=== PATIENT | female | born 2000 | race Caucasian/White ===

== ENCOUNTER 2018-12-28 18:55 | Emergency (ER) | payer OTHER ==
[2018-12-28 19:09] VITALS: RESP 18
[2018-12-28] MEDS ORDERED: KETOROLAC 30 MG/ML 1 ML VIAL IM STA (19:20)
[2018-12-28] MEDS ORDERED: DIAZEPAM 5 MG/ML 2 ML INJ IM ONE (19:20)
--- NOTE | 2018-12-28 19:25 | ED ---
Upper Extremity HPI - General Chief Complaint: Extremity Injury, Upper Stated Complaint: Should dislocation Time Seen by Provider: 12/28/18 19:12 Source: patient Mode of arrival: ambulatory Limitations: no limitations - History of Present Illness Initial Comments: 18-year-old female patient presents to the emergency department today for evaluation of right shoulder pain. Patient states that approximately 2-1/2 hours ago she was lying her son down on the floor, states that he was holding onto her arm and would not like ago which caused her right shoulder to "pop". Patient states that she had sudden onset of pain to the shoulder. States that she has a numb feeling on the right arm. Patient states that she has had a knee subluxation before but denies ever having a shoulder dislocation or subluxation. Patient did take 800 mg of ibuprofen at time of injury. She denies any other injuries or concerns. Patient denies any headache, neck pain, back pain, chest pain, shortness of breath, dizziness, weakness, abdominal pain, nausea, vomiting, or difficulties with bowel movements or urination. - Related Data Home Medications Medication Instructions Recorded Confirmed Butalb/APAP/Caff 50-325-40Mg 1 tab PO DAILY PRN 12/28/18 12/28/18 [Fioricet 50-325-40] Levalbuterol Tartrate [Xopenex Hfa 1 - 2 puff INHALATION RT-QID PRN 12/28/18 12/28/18 Inhaler] Norelgestromin/Ethin.estradiol 1 patch TRANSDERM DIRECTED 12/28/18 12/28/18 [Xulane Patch] Topiramate [Topamax] 25 mg PO HS 12/28/18 12/28/18 Allergies Allergy/AdvReac Type Severity Reaction Status Date / Time azithromycin [From Zithromax] Allergy Swelling Verified 12/28/18 19:38 Cephalosporins Allergy Rash/Hives Verified 12/28/18 19:38 methylphenidate AdvReac Rapid Verified 12/28/18 19:38 [From Concerta] Heart Rate Review of Systems ROS Statement: Those systems with pertinent positive or pertinent negative responses have been documented in the HPI. ROS Other: All systems not noted in ROS Statement are negative. Past Medical History Past Medical History: Asthma History of Any Multi-Drug Resistant Organisms: None Reported Past Surgical History: No Surgical Hx Reported Past Psychological History: No Psychological Hx Reported Smoking Status: Current every day smoker Past Alcohol Use History: None Reported Past Drug Use History: None Reported General Exam Limitations: no limitations General appearance: alert, in no apparent distress, other (There is a well- developed, well-nourished adult female patient in no acute distress. Vital signs upon presentation are temperature 98.1F, pulse 65, respirations 18, blood pressure 112/69, pulse ox 98% on room air.) Eye exam: Present: normal appearance, PERRL, EOMI. Absent: scleral icterus, conjunctival injection, periorbital swelling ENT exam: Present: normal exam, normal oropharynx, mucous membranes moist Respiratory exam: Present: normal lung sounds bilaterally. Absent: respiratory distress, wheezes, rales, rhonchi, stridor Cardiovascular Exam: Present: regular rate, normal rhythm, normal heart sounds. Absent: systolic murmur, diastolic murmur, rubs, gallop, clicks Extremities exam: Present: normal inspection, full ROM, tenderness (Right acromioclavicular joint), normal capillary refill, other (There is obvious deformity noted of the right shoulder. Skin to the right upper arm is pink, warm, dry. Cap refills less than 3 seconds. Radial pulses 2+ and equal bilater ally.). Absent: pedal edema, joint swelling, calf tenderness Neurological exam: Present: alert, oriented X3, CN II-XII intact Psychiatric exam: Present: normal affect, normal mood Skin exam: Present: warm, dry, intact, normal color. Absent: rash Course Vital Signs 12/28/18 12/28/18 19:06 21:02 Temperature 98.1 F 98.0 F Pulse Rate 65 76 Respiratory 18 18 Rate Blood Pressure 112/69 103/71 O2 Sat by Pulse 98 96 Oximetry Medical Decision Making - Medical Decision Making 18-year-old female patient presents to the emergency department today for evaluation of right shoulder injury. Patient states that she was lowering her child to the floor, states he was holding onto her arm and wouldn't let go causing a popping sensation and pain. Patient states she is unable to move the right shoulder without significant discomfort. Physical examination revealed decreased range of motion due to pain. Neurovascular status intact. X-rays were obtained and showed no acute abnormalities including dislocation or subluxation. I did discuss findings and results with the patient. We did discuss rotator cuff injury or tendon or ligamentous injury as a cause for her symptoms. She is instructed to take Tylenol Motrin for pain control. She is given a sling but given explicit instructions on frequent range of motion exercises to prevent frozen sober. She is instructed to follow-up with orthopedics for further evaluation as soon as possible patient is instructed fall. The primary care physician for recheck in 1-2 days. Return parameters discussed in detail. She verbalizes understanding and agrees with this plan. - Radiology Data Radiology results: report reviewed, image reviewed 3 views of the right shoulder obtained. Report reviewed in its entirety. I mpression by Dr. Soni shows negative right shoulder exam. Disposition Clinical Impression: Right shoulder injury Disposition: HOME SELF-CARE Condition: Good Instructions (If sedation given, give patient instructions): Rotator Cuff Injury (ED) Additional Instructions: Apply ice 20 minutes at time at least 4 times daily. Use sling for comfort and support. Remove arm from the sling and perform gentle range of motion 4-5 times daily. Follow-up with the exercise equipment specialist for further evaluation as soon as possible. Return to the emergency department immediately for any new, worsening, or concerning symptoms. Is patient prescribed a controlled substance at d/c from ED?: No Referrals: Liset Miller DO [Primary Care Provider] - 1-2 days Michoacano Vogel MD [STAFF PHYSICIAN] - 1-2 days Time of Disposition: 20:30
--- NOTE | 2018-12-28 20:03 | XR ---
EXAMINATION TYPE: XR shoulder complete RT DATE OF EXAM: 12/28/2018 COMPARISON: NONE HISTORY: Shoulder pain TECHNIQUE: 3 views FINDINGS: I see no fracture nor dislocation. Joint spaces are normal. There are no pathologic calcifi cations. IMPRESSION: Negative right shoulder exam.
[2018-12-28 21:03] VITALS: BP 103/71; PULSE 76; TEMP 98
== END 2018-12-28 21:02 | disposition home or self-care (01) ==
LOC: EC 18:55
DX: S49.91XA Unspecified injury of right shoulder and upper arm, initial encounter (principal); J45.909 Unspecified asthma, uncomplicated; F17.200 Nicotine dependence, unspecified, uncomplicated; Z79.899 Other long term (current) drug therapy; Z88.1 Allergy status to other antibiotic agents; Z88.8 Allergy status to other drugs, medicaments and biological substances; X50.9XXA Other and unspecified overexertion or strenuous movements or postures, initial encounter
CPT/HCPCS: 73030; 99283; 96372 ×2; J3360; J1885

== ENCOUNTER 2019-04-10 10:05 | Emergency (ER) | payer OTHER ==
[2019-04-10 10:18] VITALS: BP 118/51; RESP 18; TEMP 98.3
[2019-04-10] MEDS ORDERED: IPRATROPIUM-ALBUTEROL 3 ML NEB INHALATION STA (10:25)
--- NOTE | 2019-04-10 10:28 | ED ---
SOB HPI - General Chief Complaint: Shortness of Breath Stated Complaint: congestion Time Seen by Provider: 04/10/19 10:19 Source: patient, RN notes reviewed Mode of arrival: ambulatory Limitations: no limitations - History of Present Illness Initial Comments: 19-year-old female presents emergency Department chief complaint of cough, congestion shortness of breath. Patient states that she's been sick for last 3- 4 days but states her asthma has been flaring up. Patient denies any known fevers or chills. Patient states that she's had some loss of her voice but no difficulty swallowing. Patient denies any chance . Patient did not use her inhaler today. Patient also states that she feels lightheaded, states that she felt like she has not passed out earlier. Patient does not have any current symptoms of that. - Related Data Home Medications Medication Instructions Recorded Confirmed Butalb/APAP/Caff 50-325-40Mg 1 tab PO DAILY PRN 12/28/18 12/28/18 [Fioricet 50-325-40] Levalbuterol Tartrate [Xopenex Hfa 1 - 2 puff INHALATION RT-QID PRN 12/28/18 12/28/18 Inhaler] Norelgestromin/Ethin.estradiol 1 patch TRANSDERM DIRECTED 12/28/18 12/28/18 [Xulane Patch] Topiramate [Topamax] 25 mg PO HS 12/28/18 12/28/18 Previous Rx's Medication Instructions Recorded Amoxicillin/Potassium Clav 1 tab PO Q12HR #20 tab 04/10/19 [Augmentin 875-125 Tablet] predniSONE 50 mg PO DAILY #5 tab 04/10/19 Allergies Allergy/AdvReac Type Severity Reaction Status Date / Time azithromycin [From Zithromax] Allergy Swelling Verified 04/10/19 10:41 Cephalosporins Allergy Rash/Hives Verified 04/10/19 10:41 methylphenidate AdvReac Rapid Verified 04/10/19 10:41 [From Concerta] Heart Rate Review of Systems ROS Statement: Those systems with pertinent positive or pertinent negative responses have been documented in the HPI. ROS Other: All systems not noted in ROS Statement are negative. Past Medical History Past Medical History: Asthma History of Any Multi-Drug Resistant Organisms: None Reported Past Surgical History: No Surgical Hx Reported Additional Past Surgical History / Comment(s): oral Past Psychological History: No Psychological Hx Reported, Anxiety, Depression Smoking Status: Former smoker Past Alcohol Use History: Occasional Past Drug Use History: None Reported General Exam Limitations: no limitations General appearance: alert, in no apparent distress Head exam: Present: atraumatic, normocephalic, normal inspection Eye exam: Present: normal appearance, PERRL, EOMI. Absent: scleral icterus, conjunctival injection, periorbital swelling ENT exam: Present: normal exam, normal oropharynx, mucous membranes moist, TM's normal bilaterally Neck exam: Present: normal inspection, full ROM. Absent: tenderness, meningismus, lymphadenopathy Respiratory exam: Present: wheezes. Absent: normal lung sounds bilaterally, respiratory distress, rales, rhonchi, stridor Cardiovascular Exam: Present: regular rate, normal rhythm, normal heart sounds. Absent: systolic murmur, diastolic murmur, rubs, gallop, clicks Neurological exam: Present: alert, oriented X3 Skin exam: Present: warm, dry, intact, normal color. Absent: rash Course Vital Signs 04/10/19 10:14 Temperature 98.3 F Pulse Rate 79 Respiratory 18 Rate Blood Pressure 118/51 O2 Sat by Pulse 97 Oximetry Medical Decision Making - Medical Decision Making Chest x-rays unremarkable. Patient is given treatment in emergency room and which helped her symptoms. Patient EKG unremarkable. Patient to for URI, asthma exacerbation. Patient does have a rescue inhaler. Patient will follow- up with PCP and return for any worsening symptoms. - EKG Data -: EKG Interpreted by Me EKG Comments: EKG performed at 10:30 normal sinus rhythm rate of 65 ME 114 QRS 88 QT/QTC 42/418 Disposition Clinical Impression: Mild asthma exacerbation, URI (upper respiratory infection) Disposition: HOME SELF-CARE Condition: Stable Instructions (If sedation given, give patient instructions): Asthma (ED) Additional Instructions: Please return to the Emergency Department if symptoms worsen or any other concerns. Prescriptions: Amoxicillin/Potassium Clav [Augmentin 875-125 Tablet] 1 tab PO Q12HR #20 tab predniSONE 50 mg PO DAILY #5 tab Is patient prescribed a controlled substance at d/c from ED?: No Referrals: Liset Miller DO [Primary Care Provider] - 1-2 days Time of Disposition: 11:01
--- NOTE | 2019-04-10 10:39 | XR ---
EXAMINATION TYPE: XR chest 2V DATE OF EXAM: 04/10/2019 COMPARISON: None INDICATION: Cough, short of breath TECHNIQUE: Frontal and lateral views of the chest are obtained. FINDINGS: The heart size is normal. The pulmonary vasculature is normal. The lungs are clear. IMPRESSION: 1. No acute pulmonary process.
[2019-04-10 10:58] VITALS: PULSE 84
== END 2019-04-10 11:23 | disposition home or self-care (01) ==
LOC: EC 10:05
DX: J45.901 Unspecified asthma with (acute) exacerbation (principal); J06.9 Acute upper respiratory infection, unspecified; R42 Dizziness and giddiness; Z87.891 Personal history of nicotine dependence; Z88.1 Allergy status to other antibiotic agents; Z88.8 Allergy status to other drugs, medicaments and biological substances; Z79.3 Long term (current) use of hormonal contraceptives; Z79.899 Other long term (current) drug therapy
CPT/HCPCS: 71046; 93005; 94640; 99284

== ENCOUNTER 2019-10-18 08:58 | Emergency (ER) | payer OTHER ==
[2019-10-18 09:09] VITALS: TEMP 97.7
[2019-10-18] MEDS ORDERED: SODIUM CHLORIDE 0.9% 1,000 ML IV ONE (09:35)
[2019-10-18] MEDS ORDERED: SODIUM CHLORIDE 0.9% 500 ML 500 ML IV ONE (09:35)
[2019-10-18 09:36] LABS: Basophils % (A) 0 %; Eosinophils % (A) 0 %; HCT 39.5 % (34.0-46.0); HGB 12.3 gm/dL (11.4-16.0); Lymphocytes # (A) 0.9 k/uL (1.0-4.8); Lymphocytes % (A) 14 %; MCH 28.7 pg (25.0-35.0); MCV 92.7 fL (80.0-100.0); Mean Platelet Volume 9.9; Monocytes # (A) 0.2 k/uL (0-1.0); Monocytes % (A) 3 %; Neutrophils # (A) 5.4 k/uL (1.3-7.7); Neutrophils % (A) 81 %; Platelet Count 142 k/uL (150-450); RBC 4.27 m/uL (3.80-5.40); RDW 13.1 % (11.5-15.5); WBC 6.6 k/uL (3.8-10.6)
[2019-10-18] MEDS ORDERED: SODIUM CHLORIDE 0.9% 1,000 ML IV SCH (09:45)
[2019-10-18 09:51] LABS: ALT 10 U/L (4-34); AST 19 U/L (14-36); African American GFR (CKD) >90 (>60 ml/min/1.73 sqM); Alkaline Phosphatase 49 U/L (38-126); Anion Gap 9 mmol/L; Blood Urea Nitrogen 11 mg/dL (7-17); Calcium 9.2 mg/dL (8.4-10.2); Carbon Dioxide 22 mmol/L (22-30); Chloride 106 mmol/L (98-107); Glucose 141 mg/dL (74-99); Magnesium 1.5 mg/dL (1.6-2.3); Non-African American GFR(CKD) >90 (>60 ml/min/1.73 sqM); Potassium 3.6 mmol/L (3.5-5.1); Sodium 137 mmol/L (137-145); Total Bilirubin 0.5 mg/dL (0.2-1.3)
--- NOTE | 2019-10-18 10:16 | ED ---
Abdominal Pain HPI - General Chief Complaint: Abdominal Pain Stated Complaint: Vomiting Source: patient, EMS Mode of arrival: EMS Limitations: no limitations - History of Present Illness Initial Comments: 19-year-old female presenting today for chief complaint of nausea vomiting 3 days. Patient states she's had nausea and vomiting 2 days she states that she no longer tolerate oral intake. Patient states she has some very mild periumbilical pain without radiation. Denies fevers. Patient denies any melena hematochezia hyperemesis denies fevers. Patient denies any cough or rashes. Patient denies any specific dysuria urgency frequency flank pain back pain general malaise or chills. Remaining review of systems negative upon arrival patient appears well signs of acute distress - Related Data Home Medications Medication Instructions Recorded Confirmed Butalb/APAP/Caff 50-325-40Mg 1 tab PO DAILY PRN 12/28/18 10/18/19 [Fioricet 50-325-40] Levalbuterol Tartrate [Xopenex Hfa 1 - 2 puff INHALATION RT-QID PRN 12/28/18 10/18/19 Inhaler] Amitriptyline HCl [Elavil] 10 mg PO HS 10/18/19 10/18/19 Citalopram Hydrobromide 20 mg PO HS 10/18/19 10/18/19 [Citalopram HBr] Norgestimate-Ethinyl Estradiol 1 each PO DAILY 10/18/19 10/18/19 [Ortho Tri-Cyclen 28 Tablet] Previous Rx's Medication Instructions Recorded Ondansetron Odt [Zofran Odt] 4 mg PO Q8HR PRN 7 Days #21 tab 10/18/19 Sulfamethox-Tmp 800-160Mg [Bactrim 1 tab PO Q12HR 5 Days #10 tab 10/18/19 DS 800-160 mg] Allergies Allergy/AdvReac Type Severity Reaction Status Date / Time azithromycin [From Zithromax] Allergy Swelling Verified 10/18/19 09:54 Cephalosporins Allergy Rash/Hives Verified 10/18/19 09:54 methylphenidate AdvReac Rapid Verified 10/18/19 09:54 [From Concerta] Heart Rate Review of Systems ROS Statement: Those systems with pertinent positive or pertinent negative responses have been documented in the HPI. ROS Other: All systems not noted in ROS Statement are negative. Past Medical History Past Medical History: Asthma History of Any Multi-Drug Resistant Organisms: None Reported Past Surgical History: No Surgical Hx Reported Additional Past Surgical History / Comment(s): oral Past Psychological History: Anxiety, Depression Smoking Status: Former smoker Past Alcohol Use History: Occasional Past Drug Use History: Marijuana General Exam - General Exam Comments Initial Comments: General: The patient is awake and alert, in no distress, and does not appear acutely ill. Eye: Pupils are equal, round and reactive to light, extra-ocular movements are intact. No nystagmus. There is normal conjunctiva bilaterally. No signs of icterus. Cardiovascular: There is a regular rate and rhythm. No murmur, rub or gallop is appreciated. Respiratory: Lungs are clear to auscultation, respirations are non-labored, breath sounds are equal. No wheezes, stridor, rales, or rhonchi. Gastrointestinal: Soft, non-distended, mild periumbilical pain to palpation of the abdomen without masses or organomegaly noted. There is no rebound or guarding present. Musculoskeletal: Normal ROM, no tenderness. Strength 5/5. Sensation intact. Radial pulses equal bilaterally 2+. Neurological: A&O x 3. CN II-XII intact grossly, There are no obvious motor or sensory deficits. Coordination appears grossly intact. Speech is normal. Skin: Skin is warm and dry and no rashes or lesions are noted. Psychiatric: Cooperative, appropriate mood & affect, normal judgment. Limitations: no limitations Course Vital Signs 10/18/19 10/18/19 10/18/19 09:03 09:08 10:08 Temperature 97.7 F Pulse Rate 61 59 L Respiratory 18 20 20 Rate Blood Pressure 120/83 117/80 O2 Sat by Pulse 100 100 Oximetry 10/18/19 11:15 Temperature Pulse Rate 72 Respiratory 20 Rate Blood Pressure 104/74 O2 Sat by Pulse 100 Oximetry Medical Decision Making - Medical Decision Making 19 yo presenting for vomiting, some diarrhea. Mild pain periumbilical. CT (-) f or appendicitis, noted enteritis. Cystitis. UA concerning for infection vs not clean catch. UA culture pending. WIll treat. Patinet vomiting controlled, hydrated in ER. Repeat abdominal exam no pain. No vomiting in ER. states she is feeling much better after fluids. recommended pcp f/u with return parameters for worsening symptoms/any pain. Patient case discussed with Dr. William. - Lab Data Result diagrams: 10/18/19 09:07 10/18/19 09:07 Lab Results 10/18/19 10/18/19 10/18/19 Range/Units 09:07 09:07 09:51 WBC 6.6 (3.8-10.6) k/uL RBC 4.27 (3.80-5.40) m/uL Hgb 12.3 (11.4-16.0) gm/dL Hct 39.5 (34.0-46.0) % MCV 92.7 (80.0-100.0) fL MCH 28.7 (25.0-35.0) pg MCHC 31.0 (31.0-37.0) g/dL RDW 13.1 (11.5-15.5) % Plt Count 142 L (150-450) k/uL Neutrophils % 81 % Lymphocytes % 14 % Monocytes % 3 % Eosinophils % 0 % Basophils % 0 % Neutrophils # 5.4 (1.3-7.7) k/uL Lymphocytes # 0.9 L (1.0-4.8) k/uL Monocytes # 0.2 (0-1.0) k/uL Eosinophils # 0.0 (0-0.7) k/uL Basophils # 0.0 (0-0.2) k/uL Sodium 137 (137-145) mmol/L Potassium 3.6 (3.5-5.1) mmol/L Chloride 106 (98-107) mmol/L Carbon Dioxide 22 (22-30) mmol/L Anion Gap 9 mmol/L BUN 11 (7-17) mg/dL Creatinine 0.68 (0.52-1.04) mg/dL Est GFR (CKD-EPI)AfAm >90 (>60 ml/min/1.73 sqM) Est GFR (CKD-EPI)NonAf >90 (>60 ml/min/1.73 sqM) Glucose 141 H (74-99) mg/dL Calcium 9.2 (8.4-10.2) mg/dL Magnesium 1.5 L (1.6-2.3) mg/dL Total Bilirubin 0.5 (0.2-1.3) mg/dL AST 19 (14-36) U/L ALT 10 (4-34) U/L Alkaline Phosphatase 49 (38-126) U/L Total Protein 7.0 (6.3-8.2) g/dL Albumin 4.0 (3.5-5.0) g/dL Lipase 52 (23-300) U/L Urine Color Yellow Urine Appearance Cloudy H (Clear) Urine pH 7.0 (5.0-8.0) Ur Specific [place] 1.020 (1.001-1.035) Urine Protein Trace H (Negative) Urine Glucose (UA) Negative (Negative) Urine Ketones 3+ H (Negative) Urine Blood Negative (Negative) Urine Nitrite Negative (Negative) Urine Bilirubin Negative (Negative) Urine Urobilinogen <2.0 (<2.0) mg/dL Ur Leukocyte Esterase Moderate H (Negative) Urine RBC 1 (0-5) /hpf Urine WBC 31 H (0-5) /hpf Ur Squamous Epith Cells 10 H (0-4) /hpf Amorphous Sediment Rare H (None) /hpf Urine Bacteria Rare H (None) /hpf Urine Mucus Many H (None) /hpf Urine HCG, Qual (Not Detectd) 10/18/19 Range/Units 09:51 WBC (3.8-10.6) k/uL RBC (3.80-5.40) m/uL Hgb (11.4-16.0) gm/dL Hct (34.0-46.0) % MCV (80.0-100.0) fL MCH (25.0-35.0) pg MCHC (31.0-37.0) g/dL RDW (11.5-15.5) % Plt Count (150-450) k/uL Neutrophils % % Lymphocytes % % Monocytes % % Eosinophils % % Basophils % % Neutrophils # (1.3-7.7) k/uL Lymphocytes # (1.0-4.8) k/uL Monocytes # (0-1.0) k/uL Eosinophils # (0-0.7) k/uL Basophils # (0-0.2) k/uL Sodium (137-145) mmol/L Potassium (3.5-5.1) mmol/L Chloride (98-107) mmol/L Carbon Dioxide (22-30) mmol/L Anion Gap mmol/L BUN (7-17) mg/dL Creatinine (0.52-1.04) mg/dL Est GFR (CKD-EPI)AfAm (>60 ml/min/1.73 sqM) Est GFR (CKD-EPI)NonAf (>60 ml/min/1.73 sqM) Glucose (74-99) mg/dL Calcium (8.4-10.2) mg/dL Magnesium (1.6-2.3) mg/dL Total Bilirubin (0.2-1.3) mg/dL AST (14-36) U/L ALT (4-34) U/L Alkaline Phosphatase (38-126) U/L Total Protein (6.3-8.2) g/dL Albumin (3.5-5.0) g/dL Lipase (23-300) U/L Urine Color Urine Appearance (Clear) Urine pH (5.0-8.0) Ur Specific [place] (1.001-1.035) Urine Protein (Negative) Urine Glucose (UA) (Negative) Urine Ketones (Negative) Urine Blood (Negative) Urine Nitrite (Negative) Urine Bilirubin (Negative) Urine Urobilinogen (<2.0) mg/dL Ur Leukocyte Esterase (Negative) Urine RBC (0-5) /hpf Urine WBC (0-5) /hpf Ur Squamous Epith Cells (0-4) /hpf Amorphous Sediment (None) /hpf Urine Bacteria (None) /hpf Urine Mucus (None) /hpf Urine HCG, Qual Not Detected (Not Detectd) Disposition Clinical Impression: Enteritis, Vomiting, UTI (urinary tract infection) Disposition: ADMITTED IP TO THIS HOSP Condition: Stable Instructions (If sedation given, give patient instructions): Urinary Tract Infection in Women (ED), Enteritis (ED) Additional Instructions: Please use medication as discussed. Please follow-up with family doctor in the next 2 days. Please return to emergency room if the symptoms increase or worsen or for any other concerns. Prescriptions: Sulfamethox-Tmp 800-160Mg [Bactrim DS 800-160 mg] 1 tab PO Q12HR 5 Days #10 tab Ondansetron Odt [Zofran Odt] 4 mg PO Q8HR PRN 7 Days #21 tab PRN Reason: Nausea Is patient prescribed a controlled substance at d/c from ED?: No Referrals: Liset Miller DO [Primary Care Provider] - 1-2 days Time of Disposition: 10:58
[2019-10-18 10:24] VITALS: RESP 20
[2019-10-18 10:24] LABS: Amorphous Sediment,Urine Rare /hpf; Appearance,Urine Cloudy (Clear); Bacteria,Urine Rare /hpf; Bilirubin,Urine Negative (Negative); Blood,Urine Negative (Negative); Color,Urine Yellow; Glucose,Urine (UA) Negative (Negative); Ketones,Urine 3+ (Negative); Leukocyte Esterase,Urine Moderate (Negative); Mucus,Urine Many /hpf; Nitrite,Urine Negative (Negative); Protein,Urine Trace (Negative); RBC,Urine 1 /hpf (0-5); Squamous Epithelial Cell,Urine 10 /hpf (0-4); Urobilinogen,Urine <2.0 mg/dL (<2.0); WBC,Urine 31 /hpf (0-5)
--- NOTE | 2019-10-18 10:51 | CT ---
EXAMINATION TYPE: CT abdomen pelvis w con DATE OF EXAM: 10/18/2019 COMPARISON: NONE HISTORY: 19-year-old female Periumbilical pain, suspect appendicitis TECHNIQUE: Contiguous axial scanning of the abdomen and pelvis following administration of 100 ml Iso nicanor 300 IV contrast. Delayed images through the kidneys and coronal/sagittal reconstructions perform ed. CT DLP: 486.2 mGycm Automated exposure control for dose reduction was used. FINDINGS: LUNG BASES: No significant abnormality is appreciated. LIVER/GB: No significant abnormality is appreciated. PANCREAS: No significant abnormality is seen. SPLEEN: No significant abnormality is seen. ADRENALS: No significant abnormality is seen. KIDNEYS: No significant abnormality is seen. LYMPH NODES: No mesenteric or retroperitoneal lymphadenopathy. BOWEL: Cecum is low hanging into the right side of the pelvis. Short segment of normal appendix is v isualized containing foci of air, or fourth axial image 62 and coronal image 44. Some hyperemic appearing distal ileal loops seen low in the pelvis containing some prominent fluid. S cattered mild stool without pericolonic inflammatory change. PELVIS: There is moderate circumferential bladder wall thickening. Uterus anteverted. Left ovary visu alized. Right ovary not clearly delineated from adjacent bowel loops. Mild right sided cul-de-sac hugh e fluid. No pelvic lymphadenopathy. BONES: No osseous destructive process. IMPRESSION: 1. SHORT SEGMENT ABNORMAL APPENDIX IS VISUALIZED. NO FINDINGS OF ACUTE APPENDICITIS. 2. MODERATE CIRCUMFERENTIAL BLADDER WALL THICKENING; CORRELATE FOR CYSTITIS. 3. SOME HYPEREMIC APPEARING DISTAL ILEAL LOOPS HANGING LOW IN THE PELVIS COULD BE REACTIVE OR COULD R EPRESENT A REGIONAL ENTERITIS.
[2019-10-18] MEDS ORDERED: SULFAMETH-TMP DS STARTER PACK 2 TAB BTL PO STA (10:54)
[2019-10-18 11:16] VITALS: BP 104/74; PULSE 72
== END 2019-10-18 11:17 | disposition other institution (70) ==
LOC: EC 08:58
DX: N39.0 Urinary tract infection, site not specified (principal); K52.9 Noninfective gastroenteritis and colitis, unspecified; F41.9 Anxiety disorder, unspecified; F32.9 Major depressive disorder, single episode, unspecified; J45.909 Unspecified asthma, uncomplicated; Z79.51 Long term (current) use of inhaled steroids; Z79.3 Long term (current) use of hormonal contraceptives; Z79.899 Other long term (current) drug therapy; Z87.891 Personal history of nicotine dependence; Z88.1 Allergy status to other antibiotic agents; Z88.8 Allergy status to other drugs, medicaments and biological substances
CPT/HCPCS: 36415; 80053; 83690; 83735; 85025; 81001; 81025; 74177; 99285; 96360; Q9967

== ENCOUNTER 2019-10-21 15:42 | Emergency (ER) | payer OTHER ==
[2019-10-21] MEDS ORDERED: diphenhydrAMINE 50 MG/ML 1 ML VIAL IVP STA (16:09)
[2019-10-21] MEDS ORDERED: METOCLOPRAMIDE 5 MG/ML 2 ML VIAL IVP STA (16:09)
[2019-10-21] MEDS ORDERED: SODIUM CHLORIDE 0.9% 2,000 ML IV STA (16:09)
--- NOTE | 2019-10-21 16:09 | ED ---
Abdominal Pain HPI - General Chief Complaint: Abdominal Pain Stated Complaint: recheck- nausea, vomiting, abd pain Time Seen by Provider: 10/21/19 15:48 Source: patient Mode of arrival: ambulatory Limitations: no limitations - History of Present Illness Initial Comments: Patient is a 19-year-old female presenting to emergency Department with a chief complaint of nausea vomiting abdominal pain. States she went to the emergency department 2 days ago for similar symptoms. Patient reports after she was discharged, her symptoms began to improve. Stay she was discharged with Bactrim. Reports yesterday she felt better but woke up today with nausea and 1 episode of nonbilious, nonbloody vomiting. States she is not [place] since this morning. States she is able to keep only small amounts of fluids down. States she has not developed right lower back pain. Denies any night sweats fevers or chills. Denies dysuria and urgency but does report increased frequency. States the urine is darker than usual. Denies hematuria, hematochezia melena. - Related Data Home Medications Medication Instructions Recorded Confirmed Butalb/APAP/Caff 50-325-40Mg 1 tab PO DAILY PRN 12/28/18 10/18/19 [Fioricet 50-325-40] Levalbuterol Tartrate [Xopenex Hfa 1 - 2 puff INHALATION RT-QID PRN 12/28/18 10/18/19 Inhaler] Amitriptyline HCl [Elavil] 10 mg PO HS 10/18/19 10/18/19 Citalopram Hydrobromide 20 mg PO HS 10/18/19 10/18/19 [Citalopram HBr] Norgestimate-Ethinyl Estradiol 1 each PO DAILY 10/18/19 10/18/19 [Ortho Tri-Cyclen 28 Tablet] Previous Rx's Medication Instructions Recorded Ondansetron Odt [Zofran Odt] 4 mg PO Q8HR PRN 7 Days #21 tab 10/18/19 Sulfamethox-Tmp 800-160Mg [Bactrim 1 tab PO Q12HR 5 Days #10 tab 10/18/19 DS 800-160 mg] Metoclopramide [Reglan] 10 mg PO TID PRN #15 tab 10/21/19 Allergies Allergy/AdvReac Type Severity Reaction Status Date / Time azithromycin [From Zithromax] Allergy Swelling Verified 10/21/19 15:47 Cephalosporins Allergy Rash/Hives Verified 10/21/19 15:47 methylphenidate AdvReac Rapid Verified 10/21/19 15:47 [From Concerta] Heart Rate Review of Systems ROS Statement: Those systems with pertinent positive or pertinent negative responses have been documented in the HPI. ROS Other: All systems not noted in ROS Statement are negative. Past Medical History Past Medical History: Asthma History of Any Multi-Drug Resistant Organisms: None Reported Past Surgical History: No Surgical Hx Reported Additional Past Surgical History / Comment(s): oral Past Psychological History: Anxiety, Depression Smoking Status: Former smoker Past Alcohol Use History: Occasional Past Drug Use History: Marijuana General Exam Limitations: no limitations General appearance: alert, in no apparent distress Head exam: Present: atraumatic, normocephalic, normal inspection Eye exam: Present: normal appearance, PERRL, EOMI Pupils: Present: normal accommodation ENT exam: Present: normal exam, normal oropharynx, mucous membranes moist Neck exam: Present: normal inspection, full ROM Respiratory exam: Present: normal lung sounds bilaterally. Absent: respiratory distress, wheezes Cardiovascular Exam: Present: regular rate, normal rhythm, normal heart sounds GI/Abdominal exam: Present: soft, tenderness (Diffuse abdominal tenderness). Absent: distended Extremities exam: Present: normal inspection, full ROM Back exam: Present: normal inspection, full ROM, CVA tenderness (R) Neurological exam: Present: alert, oriented X3 Psychiatric exam: Present: normal affect, normal mood Skin exam: Present: warm, dry, intact, normal color Course Vital Signs 10/21/19 10/21/19 15:43 18:15 Temperature 97.6 F 98.3 F Pulse Rate 70 66 Respiratory 18 16 Rate Blood Pressure 106/70 98/54 O2 Sat by Pulse 98 99 Oximetry Medical Decision Making - Medical Decision Making Patient is 19-year-old female presenting to emergency Department with a chief complaint nausea vomiting abdominal pain. On exam she does have diffuse abdominal tenderness. Patient was given fluids, Pepcid, Benadryl and Reglan. CBC CMP are unremarkable. UA is negative for any signs of urinary checked infection. This seems to be improving since her recent visit. On reevaluation patient reports improvement in symptoms. States her abdominal pain and nausea had resolved. Patient will be discharged with Reglan. Advised to take Benadryl when taking this medication to prevent the possible side effects. Advised to drink lots of fluids, particularly Gatorade or Pedialyte. She doesn't have any diarrhea. Advised to continue taking the prescribed medication as directed. Return parameters thoroughly discussed the patient was understanding and agreeable. Case discussed physician. - Lab Data Result diagrams: 10/21/19 16:48 10/21/19 16:48 Lab Results 10/21/19 10/21/19 10/21/19 Range/Units 16:12 16:12 16:48 WBC 4.9 (3.8-10.6) k/uL RBC 4.85 (3.80-5.40) m/uL Hgb 14.1 (11.4-16.0) gm/dL Hct 44.7 (34.0-46.0) % MCV 92.2 (80.0-100.0) fL MCH 29.1 (25.0-35.0) pg MCHC 31.6 (31.0-37.0) g/dL RDW 13.1 (11.5-15.5) % Plt Count 160 (150-450) k/uL Neutrophils % 62 % Lymphocytes % 29 % Monocytes % 4 % Eosinophils % 2 % Basophils % 1 % Neutrophils # 3.0 (1.3-7.7) k/uL Lymphocytes # 1.4 (1.0-4.8) k/uL Monocytes # 0.2 (0-1.0) k/uL Eosinophils # 0.1 (0-0.7) k/uL Basophils # 0.0 (0-0.2) k/uL Sodium (137-145) mmol/L Potassium (3.5-5.1) mmol/L Chloride (98-107) mmol/L Carbon Dioxide (22-30) mmol/L Anion Gap mmol/L BUN (7-17) mg/dL Creatinine (0.52-1.04) mg/dL Est GFR (CKD-EPI)AfAm (>60 ml/min/1.73 sqM) Est GFR (CKD-EPI)NonAf (>60 ml/min/1.73 sqM) Glucose (74-99) mg/dL Calcium (8.4-10.2) mg/dL Total Bilirubin (0.2-1.3) mg/dL AST (14-36) U/L ALT (4-34) U/L Alkaline Phosphatase (38-126) U/L Total Protein (6.3-8.2) g/dL Albumin (3.5-5.0) g/dL Lipase (23-300) U/L Urine Color Light Yellow Urine Appearance Cloudy H (Clear) Urine pH 6.5 (5.0-8.0) Ur Specific [place] 1.008 (1.001-1.035) Urine Protein Negative (Negative) Urine Glucose (UA) Negative (Negative) Urine Ketones Negative (Negative) Urine Blood Negative (Negative) Urine Nitrite Negative (Negative) Urine Bilirubin Negative (Negative) Urine Urobilinogen <2.0 (<2.0) mg/dL Ur Leukocyte Esterase Trace H (Negative) Urine RBC 1 (0-5) /hpf Urine WBC 1 (0-5) /hpf Ur Squamous Epith Cells 2 (0-4) /hpf Urine HCG, Qual Not Detected (Not Detectd) 10/21/19 Range/Units 16:48 WBC (3.8-10.6) k/uL RBC (3.80-5.40) m/uL Hgb (11.4-16.0) gm/dL Hct (34.0-46.0) % MCV (80.0-100.0) fL MCH (25.0-35.0) pg MCHC (31.0-37.0) g/dL RDW (11.5-15.5) % Plt Count (150-450) k/uL Neutrophils % % Lymphocytes % % Monocytes % % Eosinophils % % Basophils % % Neutrophils # (1.3-7.7) k/uL Lymphocytes # (1.0-4.8) k/uL Monocytes # (0-1.0) k/uL Eosinophils # (0-0.7) k/uL Basophils # (0-0.2) k/uL Sodium 136 L (137-145) mmol/L Potassium 4.6 (3.5-5.1) mmol/L Chloride 102 (98-107) mmol/L Carbon Dioxide 22 (22-30) mmol/L Anion Gap 12 mmol/L BUN 11 (7-17) mg/dL Creatinine 0.78 (0.52-1.04) mg/dL Est GFR (CKD-EPI)AfAm >90 (>60 ml/min/1.73 sqM) Est GFR (CKD-EPI)NonAf >90 (>60 ml/min/1.73 sqM) Glucose 82 (74-99) mg/dL Calcium 9.9 (8.4-10.2) mg/dL Total Bilirubin 0.5 (0.2-1.3) mg/dL AST 21 (14-36) U/L ALT 12 (4-34) U/L Alkaline Phosphatase 47 (38-126) U/L Total Protein 7.9 (6.3-8.2) g/dL Albumin 4.7 (3.5-5.0) g/dL Lipase 42 (23-300) U/L Urine Color Urine Appearance (Clear) Urine pH (5.0-8.0) Ur Specific [place] (1.001-1.035) Urine Protein (Negative) Urine Glucose (UA) (Negative) Urine Ketones (Negative) Urine Blood (Negative) Urine Nitrite (Negative) Urine Bilirubin (Negative) Urine Urobilinogen (<2.0) mg/dL Ur Leukocyte Esterase (Negative) Urine RBC (0-5) /hpf Urine WBC (0-5) /hpf Ur Squamous Epith Cells (0-4) /hpf Urine HCG, Qual (Not Detectd) Disposition Clinical Impression: Nausea & vomiting, Abdominal pain Disposition: HOME SELF-CARE Condition: Stable Instructions (If sedation given, give patient instructions): Enteritis (ED) Additional Instructions: Make sure to drink lots of fluids. Return to emergency department if symptoms worsen. Prescriptions: Metoclopramide [Reglan] 10 mg PO TID PRN #15 tab PRN Reason: GERD Is patient prescribed a controlled substance at d/c from ED?: No Referrals: Liset Miller DO [Primary Care Provider] - 1-2 days Time of Disposition: 17:56
[2019-10-21] MEDS ORDERED: FAMOTIDINE 20 MG/2 ML VIAL IV STA (16:10)
[2019-10-21 16:23] LABS: Appearance,Urine Cloudy (Clear); Bilirubin,Urine Negative (Negative); Blood,Urine Negative (Negative); Color,Urine Light Yellow; Glucose,Urine (UA) Negative (Negative); Ketones,Urine Negative (Negative); Leukocyte Esterase,Urine Trace (Negative); Nitrite,Urine Negative (Negative); PH, Urine 6.5 (5.0-8.0); Protein,Urine Negative (Negative); RBC,Urine 1 /hpf (0-5); Specific Gravity,Urine 1.008 (1.001-1.035); Squamous Epithelial Cell,Urine 2 /hpf (0-4); Urobilinogen,Urine <2.0 mg/dL (<2.0); WBC,Urine 1 /hpf (0-5)
[2019-10-21 17:28] LABS: Basophils % (A) 1 %; Eosinophils # (A) 0.1 k/uL (0-0.7); Eosinophils % (A) 2 %; HCT 44.7 % (34.0-46.0); HGB 14.1 gm/dL (11.4-16.0); Lymphocytes # (A) 1.4 k/uL (1.0-4.8); Lymphocytes % (A) 29 %; MCH 29.1 pg (25.0-35.0); MCHC 31.6 g/dL (31.0-37.0); MCV 92.2 fL (80.0-100.0); Mean Platelet Volume 9.8; Monocytes # (A) 0.2 k/uL (0-1.0); Monocytes % (A) 4 %; Neutrophils % (A) 62 %; Platelet Count 160 k/uL (150-450); RBC 4.85 m/uL (3.80-5.40); RDW 13.1 % (11.5-15.5); WBC 4.9 k/uL (3.8-10.6)
[2019-10-21 17:44] LABS: ALT 12 U/L (4-34); AST 21 U/L (14-36); African American GFR (CKD) >90 (>60 ml/min/1.73 sqM); Albumin 4.7 g/dL (3.5-5.0); Alkaline Phosphatase 47 U/L (38-126); Anion Gap 12 mmol/L; Blood Urea Nitrogen 11 mg/dL (7-17); Calcium 9.9 mg/dL (8.4-10.2); Carbon Dioxide 22 mmol/L (22-30); Chloride 102 mmol/L (98-107); Glucose 82 mg/dL (74-99); Non-African American GFR(CKD) >90 (>60 ml/min/1.73 sqM); Potassium 4.6 mmol/L (3.5-5.1); Sodium 136 mmol/L (137-145); Total Bilirubin 0.5 mg/dL (0.2-1.3); Total Protein 7.9 g/dL (6.3-8.2)
[2019-10-21 18:16] VITALS: BP 98/54; PULSE 66; RESP 16; TEMP 98.3
== END 2019-10-21 18:30 | disposition home or self-care (01) ==
LOC: EC 15:42
DX: R10.9 Unspecified abdominal pain (principal); R11.2 Nausea with vomiting, unspecified; R10.817 Generalized abdominal tenderness; J45.909 Unspecified asthma, uncomplicated; F41.9 Anxiety disorder, unspecified; F32.9 Major depressive disorder, single episode, unspecified; Z79.899 Other long term (current) drug therapy; Z88.1 Allergy status to other antibiotic agents; Z88.8 Allergy status to other drugs, medicaments and biological substances; Z87.891 Personal history of nicotine dependence
CPT/HCPCS: 36415; 80053; 83690; 85025; 81001; 81025; 99284; 96374; 96375 ×2; 96361 ×2; J1200; J2765

== ENCOUNTER 2019-11-16 12:02 | Emergency (ER) | payer OTHER ==
[2019-11-16 12:07] VITALS: TEMP 98.2
[2019-11-16] MEDS ORDERED: SODIUM CHLORIDE 0.9% 1,000 ML IV STA (12:09)
[2019-11-16] MEDS ORDERED: ONDANSETRON 4 MG/2 ML VIAL IVP STA (12:09)
[2019-11-16] MEDS ORDERED: PANTOPRAZOLE 40 MG/10 ML VIAL IVP STA (12:28)
[2019-11-16] MEDS ORDERED: ALPRAZolam 0.5 MG TAB PO STA (12:28)
--- NOTE | 2019-11-16 12:31 | ED ---
General Adult HPI - General Chief complaint: Abdominal Pain Stated complaint: Blood in stool, vomiting Time Seen by Provider: 11/16/19 12:09 Source: patient Mode of arrival: ambulatory Limitations: no limitations - History of Present Illness Initial comments: Dictation was produced using [employer] dictation software. please excuse any grammatical, word or spelling errors. This patient was cared for during a federal and state declared state of [facility] secondary to Covid 19 Chief Complaint: 19-year-old female past medical history of colitis presents today with dark stools and abdominal pain. History of Present Illness: Patient's 19-year-old female she is currently B were worked up by her primary care physician for possible inflammatory bowel disease and GI bleed. Today she complained to her primary care physician that she was having black stools. She reports that her stools are painful to pass on occasion. She does complain of some mild rectal pain with defecation. Denies any nausea or vomiting. She does have some very mild abdominal pain to the periumbilical region. Denies any fever, chills or night sweats. She's also have a scheduled endoscopy with a GI doctor in the near future. The ROS documented in this emergency department record has been reviewed and confirmed by me. Those systems with pertinent positive or negative responses have been documented in the HPI. All other systems are other negative and/or noncontributory. PHYSICAL EXAM: General Impression: Alert and oriented x3, not in acute distress HEENT: Normocephalic atraumatic, extra-ocular movements intact, pupils equal and reactive to light bilaterally, mucous membranes moist. Cardiovascular: Heart regular rate and rhythm Chest: Able to complete full sentences, no retractions, no tachypnea Abdomen: abdomen soft, non-tender, non-distended, no organomegaly Musculoskeletal: Pulses present and equal in all extremities, no peripheral edema Motor: no focal deficits noted Neurological: CN II-XII grossly intact, no focal motor or sensory deficits noted Skin: Intact with no visualized rashes Psych: Mildly anxious Rectal exam: No external hemorrhoids, no identifiable anal fissures, there is some dark specks with rectal exam ED course: 19-year-old feel presents with black stools vital signs upon arrival shows heart rate of 125, rest of vital signs within acceptable limits Laboratory evaluation obtained. CBC, metabolic panel is within acceptable limits. Abdominal labs are unremarkable. Urinalysis shows contaminated urine. So, blood is negative. Patient reevaluated at bedside found to be in stable medical condition. She does have establish care with hydrotreater operator. Patient stable for discharge. Return parameters discussed. - Related Data Home Medications Medication Instructions Recorded Confirmed Butalb/APAP/Caff 50-325-40Mg 1 tab PO DAILY PRN 12/28/18 10/18/19 [Fioricet 50-325-40] Levalbuterol Tartrate [Xopenex Hfa 1 - 2 puff INHALATION RT-QID PRN 12/28/18 10/18/19 Inhaler] Amitriptyline HCl [Elavil] 10 mg PO HS 10/18/19 10/18/19 Citalopram Hydrobromide 20 mg PO HS 10/18/19 10/18/19 [Citalopram HBr] Norgestimate-Ethinyl Estradiol 1 each PO DAILY 10/18/19 10/18/19 [Ortho Tri-Cyclen 28 Tablet] Previous Rx's Medication Instructions Recorded Ondansetron Odt [Zofran Odt] 4 mg PO Q8HR PRN 7 Days #21 tab 10/18/19 Sulfamethox-Tmp 800-160Mg [Bactrim 1 tab PO Q12HR 5 Days #10 tab 10/18/19 DS 800-160 mg] Metoclopramide [Reglan] 10 mg PO TID PRN #15 tab 10/21/19 Allergies Allergy/AdvReac Type Severity Reaction Status Date / Time azithromycin [From Zithromax] Allergy Swelling Verified 11/16/19 12:07 Cephalosporins Allergy Rash/Hives Verified 11/16/19 12:07 methylphenidate AdvReac Rapid Verified 11/16/19 12:07 [From Concerta] Heart Rate Review of Systems ROS Statement: Those systems with pertinent positive or pertinent negative responses have been documented in the HPI. ROS Other: All systems not noted in ROS Statement are negative. Past Medical History Past Medical History: Asthma History of Any Multi-Drug Resistant Organisms: None Reported Past Surgical History: No Surgical Hx Reported Additional Past Surgical History / Comment(s): oral Past Psychological History: Anxiety, Depression Smoking Status: Former smoker Past Alcohol Use History: Occasional Past Drug Use History: None Reported, Marijuana General Exam Limitations: no limitations Course Vital Signs 11/16/19 12:03 Temperature 98.2 F Pulse Rate 125 H Respiratory 18 Rate Blood Pressure 120/75 O2 Sat by Pulse 95 Oximetry Medical Decision Making - Lab Data Result diagrams: 11/16/19 12:46 11/16/19 12:46 Lab Results 11/16/19 11/16/19 11/16/19 Range/Units 12:46 12:46 12:46 WBC 3.8 (3.8-10.6) k/uL RBC 4.26 (3.80-5.40) m/uL Hgb 12.8 (11.4-16.0) gm/dL Hct 40.0 (34.0-46.0) % MCV 93.9 (80.0-100.0) fL MCH 30.1 (25.0-35.0) pg MCHC 32.0 (31.0-37.0) g/dL RDW 13.2 (11.5-15.5) % Plt Count 147 L (150-450) k/uL Neutrophils % 75 % Lymphocytes % 18 % Monocytes % 4 % Eosinophils % 1 % Basophils % 1 % Neutrophils # 2.9 (1.3-7.7) k/uL Lymphocytes # 0.7 L (1.0-4.8) k/uL Monocytes # 0.2 (0-1.0) k/uL Eosinophils # 0.0 (0-0.7) k/uL Basophils # 0.0 (0-0.2) k/uL Sodium (137-145) mmol/L Potassium (3.5-5.1) mmol/L Chloride (98-107) mmol/L Carbon Dioxide (22-30) mmol/L Anion Gap mmol/L BUN (7-17) mg/dL Creatinine (0.52-1.04) mg/dL Est GFR (CKD-EPI)AfAm (>60 ml/min/1.73 sqM) Est GFR (CKD-EPI)NonAf (>60 ml/min/1.73 sqM) Glucose (74-99) mg/dL Calcium (8.4-10.2) mg/dL Total Bilirubin (0.2-1.3) mg/dL AST (14-36) U/L ALT (4-34) U/L Alkaline Phosphatase (38-126) U/L Total Protein (6.3-8.2) g/dL Albumin (3.5-5.0) g/dL Lipase (23-300) U/L Urine Color Yellow Urine Appearance Cloudy H (Clear) Urine pH 6.5 (5.0-8.0) Ur Specific [place] 1.023 (1.001-1.035) Urine Protein Trace H (Negative) Urine Glucose (UA) Negative (Negative) Urine Ketones 3+ H (Negative) Urine Blood Negative (Negative) Urine Nitrite Negative (Negative) Urine Bilirubin Negative (Negative) Urine Urobilinogen <2.0 (<2.0) mg/dL Ur Leukocyte Esterase Large H (Negative) Urine RBC 1 (0-5) /hpf Urine WBC 19 H (0-5) /hpf Ur Squamous Epith Cells 38 H (0-4) /hpf Urine Bacteria Rare H (None) /hpf Hyaline Casts 4 H (0-2) /lpf Urine Mucus Moderate H (None) /hpf Urine HCG, Qual Not Detected (Not Detectd) Stool Occult Blood (Negative) 11/16/19 11/16/19 Range/Units 12:46 12:46 WBC (3.8-10.6) k/uL RBC (3.80-5.40) m/uL Hgb (11.4-16.0) gm/dL Hct (34.0-46.0) % MCV (80.0-100.0) fL MCH (25.0-35.0) pg MCHC (31.0-37.0) g/dL RDW (11.5-15.5) % Plt Count (150-450) k/uL Neutrophils % % Lymphocytes % % Monocytes % % Eosinophils % % Basophils % % Neutrophils # (1.3-7.7) k/uL Lymphocytes # (1.0-4.8) k/uL Monocytes # (0-1.0) k/uL Eosinophils # (0-0.7) k/uL Basophils # (0-0.2) k/uL Sodium 136 L (137-145) mmol/L Potassium 3.9 (3.5-5.1) mmol/L Chloride 104 (98-107) mmol/L Carbon Dioxide 21 L (22-30) mmol/L Anion Gap 11 mmol/L BUN 10 (7-17) mg/dL Creatinine 0.64 (0.52-1.04) mg/dL Est GFR (CKD-EPI)AfAm >90 (>60 ml/min/1.73 sqM) Est GFR (CKD-EPI)NonAf >90 (>60 ml/min/1.73 sqM) Glucose 79 (74-99) mg/dL Calcium 9.4 (8.4-10.2) mg/dL Total Bilirubin 0.7 (0.2-1.3) mg/dL AST 19 (14-36) U/L ALT 13 (4-34) U/L Alkaline Phosphatase 38 (38-126) U/L Total Protein 7.2 (6.3-8.2) g/dL Albumin 4.3 (3.5-5.0) g/dL Lipase 43 (23-300) U/L Urine Color Urine Appearance (Clear) Urine pH (5.0-8.0) Ur Specific [place] (1.001-1.035) Urine Protein (Negative) Urine Glucose (UA) (Negative) Urine Ketones (Negative) Urine Blood (Negative) Urine Nitrite (Negative) Urine Bilirubin (Negative) Urine Urobilinogen (<2.0) mg/dL Ur Leukocyte Esterase (Negative) Urine RBC (0-5) /hpf Urine WBC (0-5) /hpf Ur Squamous Epith Cells (0-4) /hpf Urine Bacteria (None) /hpf Hyaline Casts (0-2) /lpf Urine Mucus (None) /hpf Urine HCG, Qual (Not Detectd) Stool Occult Blood Negative (Negative) Disposition Clinical Impression: Black stool Disposition: HOME SELF-CARE Condition: Good Instructions (If sedation given, give patient instructions): Gastrointestinal Bleeding (ED) Is patient prescribed a controlled substance at d/c from ED?: No Referrals: Liset Miller DO [Primary Care Provider] - 1-2 days Time of Disposition: 13:31
[2019-11-16 13:00] LABS: Basophils % (A) 1 %; Eosinophils % (A) 1 %; HGB 12.8 gm/dL (11.4-16.0); Lymphocytes # (A) 0.7 k/uL (1.0-4.8); Lymphocytes % (A) 18 %; MCH 30.1 pg (25.0-35.0); MCV 93.9 fL (80.0-100.0); Mean Platelet Volume 9.5; Monocytes # (A) 0.2 k/uL (0-1.0); Monocytes % (A) 4 %; Neutrophils # (A) 2.9 k/uL (1.3-7.7); Neutrophils % (A) 75 %; Platelet Count 147 k/uL (150-450); RBC 4.26 m/uL (3.80-5.40); RDW 13.2 % (11.5-15.5); WBC 3.8 k/uL (3.8-10.6)
[2019-11-16 13:04] LABS: Appearance,Urine Cloudy (Clear); Bacteria,Urine Rare /hpf; Bilirubin,Urine Negative (Negative); Blood,Urine Negative (Negative); Color,Urine Yellow; Glucose,Urine (UA) Negative (Negative); Hyaline Casts,Urine 4 /lpf (0-2); Ketones,Urine 3+ (Negative); Leukocyte Esterase,Urine Large (Negative); Mucus,Urine Moderate /hpf; Nitrite,Urine Negative (Negative); PH, Urine 6.5 (5.0-8.0); Protein,Urine Trace (Negative); RBC,Urine 1 /hpf (0-5); Specific Gravity,Urine 1.023 (1.001-1.035); Squamous Epithelial Cell,Urine 38 /hpf (0-4); Urobilinogen,Urine <2.0 mg/dL (<2.0); WBC,Urine 19 /hpf (0-5)
[2019-11-16 13:08] LABS: ALT 13 U/L (4-34); AST 19 U/L (14-36); African American GFR (CKD) >90 (>60 ml/min/1.73 sqM); Albumin 4.3 g/dL (3.5-5.0); Alkaline Phosphatase 38 U/L (38-126); Anion Gap 11 mmol/L; Blood Urea Nitrogen 10 mg/dL (7-17); Calcium 9.4 mg/dL (8.4-10.2); Carbon Dioxide 21 mmol/L (22-30); Chloride 104 mmol/L (98-107); Glucose 79 mg/dL (74-99); Non-African American GFR(CKD) >90 (>60 ml/min/1.73 sqM); Potassium 3.9 mmol/L (3.5-5.1); Sodium 136 mmol/L (137-145); Total Bilirubin 0.7 mg/dL (0.2-1.3); Total Protein 7.2 g/dL (6.3-8.2)
[2019-11-16 14:22] VITALS: BP 103/64; PULSE 76; RESP 20
== END 2019-11-16 14:18 | disposition home or self-care (01) ==
LOC: EC 12:02
DX: K92.1 Melena (principal); R82.998 Other abnormal findings in urine; R10.33 Periumbilical pain; R11.10 Vomiting, unspecified; K62.89 Other specified diseases of anus and rectum; F41.9 Anxiety disorder, unspecified; F32.9 Major depressive disorder, single episode, unspecified; J45.909 Unspecified asthma, uncomplicated; Z79.51 Long term (current) use of inhaled steroids; Z79.899 Other long term (current) drug therapy; Z87.891 Personal history of nicotine dependence; Z88.1 Allergy status to other antibiotic agents; Z88.8 Allergy status to other drugs, medicaments and biological substances; Z87.19 Personal history of other diseases of the digestive system
CPT/HCPCS: 36415; 80053; 81001; 81025; 82272; 83690; 85025; 87086; 96361; 96374; 96375; 99284

== ENCOUNTER 2020-05-29 19:00 | Emergency (ER) | payer OTHER ==
[2020-05-29 19:06] VITALS: TEMP 97.8
[2020-05-29] MEDS ORDERED: SODIUM CHLORIDE 0.9% 1,000 ML IV STA (19:33)
--- NOTE | 2020-05-29 19:59 | ED ---
General Adult HPI - General Chief complaint: Dizziness Stated complaint: heart concerns/dizziness/12 wks preg Time Seen by Provider: 05/29/20 19:13 Source: patient, RN notes reviewed, old records reviewed Mode of arrival: ambulatory Limitations: no limitations - History of Present Illness Initial comments: 20-year-old female who is currently 14 weeks , G 2P1 presenting for evaluation of lightheadedness. She states that she had gone to her primary care office visit yesterday was noted to be hypotensive in the 60s. She states she's had nausea and had been vomiting although her vomiting has improved over the past week or so. She denies any abdominal pain. Denies vaginal bleeding or vaginal discharge. - Related Data Home Medications Medication Instructions Recorded Confirmed Amitriptyline HCl [Elavil] 10 mg PO HS 10/18/19 05/29/20 Citalopram Hydrobromide 10 mg PO HS 10/18/19 05/29/20 [Citalopram HBr] Vzs-Raac-Aqtlb Acid 1 cap PO HS 05/29/20 05/29/20 [-U Capsule (formulary)] Previous Rx's Medication Instructions Recorded Nitrofurantoin Monohyd/M-Cryst 100 mg PO Q12HR #20 cap 05/29/20 [Macrobid] Allergies Allergy/AdvReac Type Severity Reaction Status Date / Time azithromycin [From Zithromax] Allergy Swelling Verified 05/29/20 20:05 Cephalosporins Allergy Rash/Hives Verified 05/29/20 20:05 methylphenidate AdvReac Rapid Verified 05/29/20 20:05 [From Concerta] Heart Rate Review of Systems ROS Statement: Those systems with pertinent positive or pertinent negative responses have been documented in the HPI. ROS Other: All systems not noted in ROS Statement are negative. Past Medical History Past Medical History: Asthma Additional Past Medical History / Comment(s): migraines, History of Any Multi-Drug Resistant Organisms: None Reported Past Surgical History: No Surgical Hx Reported Additional Past Surgical History / Comment(s): oral Past Psychological History: Anxiety, Depression Smoking Status: Never smoker Past Alcohol Use History: Occasional Past Drug Use History: Marijuana General Exam Limitations: no limitations General appearance: alert, in no apparent distress Head exam: Present: atraumatic, normocephalic Eye exam: Present: normal appearance, PERRL ENT exam: Present: mucous membranes dry Neck exam: Present: normal inspection. Absent: tenderness, meningismus Respiratory exam: Present: normal lung sounds bilaterally. Absent: respiratory distress, wheezes Cardiovascular Exam: Present: regular rate, normal rhythm GI/Abdominal exam: Present: soft, other (Gravid). Absent: distended Extremities exam: Present: normal inspection, normal capillary refill. Absent: pedal edema, calf tenderness Neurological exam: Present: alert, oriented X3, CN II-XII intact. Absent: motor sensory deficit Psychiatric exam: Present: normal affect, normal mood Skin exam: Present: warm, dry, intact. Absent: cyanosis, diaphoretic Course Vital Signs 05/29/20 05/29/20 19:02 20:03 Temperature 97.8 F Pulse Rate 97 Respiratory 17 Rate Blood Pressure 107/70 102/64 O2 Sat by Pulse 97 Oximetry EKG Findings - EKG Comments: EKG Findings:: EKG: Normal sinus rhythm, rate of 60, FL interval 118, QRS duration 84, QTC 392 Medical Decision Making - Medical Decision Making 20-year-old with lightheadedness, likely dehydration hypovolemia. She is 12 weeks . No complaints specifically, no abdominal pain, no vaginal discharge or vaginal bleeding. No dysuria. Patient has a normal CBC, normal CMP, normal kidney function and electrolytes. She's given 1 L of IV hydration and on reevaluation she is feeling better. She has 4 white blood cells and rare bacteria on urinalysis. This will be cultured. I did discuss with the pharmacist bond writer antibiotic choices and recommended Macrobid at this time. Patient prescribed Macrobid and will follow-up with her SANITARY AIDE. She will increase fluids and return as needed. - Lab Data Result diagrams: 05/29/20 19:57 05/29/20 19:57 Lab Results 05/29/20 05/29/20 05/29/20 Range/Units 19:57 19:57 19:57 WBC 6.8 (3.8-10.6) k/uL RBC 3.73 L (3.80-5.40) m/uL Hgb 12.4 (11.4-16.0) gm/dL Hct 35.2 (34.0-46.0) % MCV 94.3 (80.0-100.0) fL MCH 33.2 (25.0-35.0) pg MCHC 35.3 (31.0-37.0) g/dL RDW 13.1 (11.5-15.5) % Plt Count 156 (150-450) k/uL MPV 8.6 Neutrophils % 77 % Lymphocytes % 16 % Monocytes % 4 % Eosinophils % 2 % Basophils % 0 % Neutrophils # 5.2 (1.3-7.7) k/uL Lymphocytes # 1.1 (1.0-4.8) k/uL Monocytes # 0.3 (0-1.0) k/uL Eosinophils # 0.1 (0-0.7) k/uL Basophils # 0.0 (0-0.2) k/uL Sodium 134 L (137-145) mmol/L Potassium 4.1 (3.5-5.1) mmol/L Chloride 104 (98-107) mmol/L Carbon Dioxide 26 (22-30) mmol/L Anion Gap 4 mmol/L BUN 4 L (7-17) mg/dL Creatinine 0.45 L (0.52-1.04) mg/dL Est GFR (CKD-EPI)AfAm >90 (>60 ml/min/1.73 sqM) Est GFR (CKD-EPI)NonAf >90 (>60 ml/min/1.73 sqM) Glucose 89 (74-99) mg/dL Plasma Lactic Acid Adams (0.7-2.0) mmol/L Calcium 9.2 (8.4-10.2) mg/dL Magnesium 1.6 (1.6-2.3) mg/dL Total Bilirubin 0.2 (0.2-1.3) mg/dL AST 19 (14-36) U/L ALT 16 (4-34) U/L Alkaline Phosphatase 37 L (38-126) U/L Total Protein 6.6 (6.3-8.2) g/dL Albumin 3.8 (3.5-5.0) g/dL Urine Color Light Yellow Urine Appearance Cloudy H (Clear) Urine pH 7.0 (5.0-8.0) Ur Specific Lamona 1.010 (1.001-1.035) Urine Protein Negative (Negative) Urine Glucose (UA) Negative (Negative) Urine Ketones Negative (Negative) Urine Blood Negative (Negative) Urine Nitrite Negative (Negative) Urine Bilirubin Negative (Negative) Urine Urobilinogen <2.0 (<2.0) mg/dL Ur Leukocyte Esterase Moderate H (Negative) Urine RBC 1 (0-5) /hpf Urine WBC 4 (0-5) /hpf Ur Squamous Epith Cells 8 H (0-4) /hpf Amorphous Sediment Rare H (None) /hpf Urine Bacteria Rare H (None) /hpf Urine Mucus Rare H (None) /hpf 05/29/20 Range/Units 19:57 WBC (3.8-10.6) k/uL RBC (3.80-5.40) m/uL Hgb (11.4-16.0) gm/dL Hct (34.0-46.0) % MCV (80.0-100.0) fL MCH (25.0-35.0) pg MCHC (31.0-37.0) g/dL RDW (11.5-15.5) % Plt Count (150-450) k/uL MPV Neutrophils % % Lymphocytes % % Monocytes % % Eosinophils % % Basophils % % Neutrophils # (1.3-7.7) k/uL Lymphocytes # (1.0-4.8) k/uL Monocytes # (0-1.0) k/uL Eosinophils # (0-0.7) k/uL Basophils # (0-0.2) k/uL Sodium (137-145) mmol/L Potassium (3.5-5.1) mmol/L Chloride (98-107) mmol/L Carbon Dioxide (22-30) mmol/L Anion Gap mmol/L BUN (7-17) mg/dL Creatinine (0.52-1.04) mg/dL Est GFR (CKD-EPI)AfAm (>60 ml/min/1.73 sqM) Est GFR (CKD-EPI)NonAf (>60 ml/min/1.73 sqM) Glucose (74-99) mg/dL Plasma Lactic Acid Adams 0.7 (0.7-2.0) mmol/L Calcium (8.4-10.2) mg/dL Magnesium (1.6-2.3) mg/dL Total Bilirubin (0.2-1.3) mg/dL AST (14-36) U/L ALT (4-34) U/L Alkaline Phosphatase (38-126) U/L Total Protein (6.3-8.2) g/dL Albumin (3.5-5.0) g/dL Urine Color Urine Appearance (Clear) Urine pH (5.0-8.0) Ur Specific Lamona (1.001-1.035) Urine Protein (Negative) Urine Glucose (UA) (Negative) Urine Ketones (Negative) Urine Blood (Negative) Urine Nitrite (Negative) Urine Bilirubin (Negative) Urine Urobilinogen (<2.0) mg/dL Ur Leukocyte Esterase (Negative) Urine RBC (0-5) /hpf Urine WBC (0-5) /hpf Ur Squamous Epith Cells (0-4) /hpf Amorphous Sediment (None) /hpf Urine Bacteria (None) /hpf Urine Mucus (None) /hpf Disposition Clinical Impression: Dehydration, First trimester , Asymptomatic bacteriuria Disposition: HOME SELF-CARE Condition: Good Instructions (If sedation given, give patient instructions): Urinary Tract Infection in (ED), Dehydration (ED) Prescriptions: Nitrofurantoin Monohyd/M-Cryst [Macrobid] 100 mg PO Q12HR #20 cap Is patient prescribed a controlled substance at d/c from ED?: No Referrals: Liset Miller DO [Primary Care Provider] - 1-2 days Kristy Watt DO [Doctor of Osteopathic Medicine] - 1-2 days Time of Disposition: 20:41
[2020-05-29 20:06] LABS: Basophils % (A) 0 %; Eosinophils # (A) 0.1 k/uL (0-0.7); Eosinophils % (A) 2 %; HCT 35.2 % (34.0-46.0); HGB 12.4 gm/dL (11.4-16.0); Lymphocytes # (A) 1.1 k/uL (1.0-4.8); Lymphocytes % (A) 16 %; MCH 33.2 pg (25.0-35.0); MCHC 35.3 g/dL (31.0-37.0); MCV 94.3 fL (80.0-100.0); Mean Platelet Volume 8.6; Monocytes # (A) 0.3 k/uL (0-1.0); Monocytes % (A) 4 %; Neutrophils # (A) 5.2 k/uL (1.3-7.7); Neutrophils % (A) 77 %; Platelet Count 156 k/uL (150-450); RBC 3.73 m/uL (3.80-5.40); RDW 13.1 % (11.5-15.5); WBC 6.8 k/uL (3.8-10.6)
[2020-05-29 20:15] LABS: Amorphous Sediment,Urine Rare /hpf; Appearance,Urine Cloudy (Clear); Bacteria,Urine Rare /hpf; Bilirubin,Urine Negative (Negative); Blood,Urine Negative (Negative); Color,Urine Light Yellow; Glucose,Urine (UA) Negative (Negative); Ketones,Urine Negative (Negative); Leukocyte Esterase,Urine Moderate (Negative); Mucus,Urine Rare /hpf; Nitrite,Urine Negative (Negative); Protein,Urine Negative (Negative); RBC,Urine 1 /hpf (0-5); Squamous Epithelial Cell,Urine 8 /hpf (0-4); Urobilinogen,Urine <2.0 mg/dL (<2.0); WBC,Urine 4 /hpf (0-5)
[2020-05-29 20:20] LABS: ALT 16 U/L (4-34); AST 19 U/L (14-36); African American GFR (CKD) >90 (>60 ml/min/1.73 sqM); Albumin 3.8 g/dL (3.5-5.0); Alkaline Phosphatase 37 U/L (38-126); Anion Gap 4 mmol/L; Blood Urea Nitrogen 4 mg/dL (7-17); Calcium 9.2 mg/dL (8.4-10.2); Carbon Dioxide 26 mmol/L (22-30); Chloride 104 mmol/L (98-107); Glucose 89 mg/dL (74-99); Magnesium 1.6 mg/dL (1.6-2.3); Non-African American GFR(CKD) >90 (>60 ml/min/1.73 sqM); Potassium 4.1 mmol/L (3.5-5.1); Sodium 134 mmol/L (137-145); Total Bilirubin 0.2 mg/dL (0.2-1.3); Total Protein 6.6 g/dL (6.3-8.2)
[2020-05-29 20:53] VITALS: BP 114/75; PULSE 64; RESP 18
== END 2020-05-29 20:53 | disposition home or self-care (01) ==
LOC: EC 19:00
DX: O99.281 Endocrine, nutritional and metabolic diseases complicating pregnancy, first trimester (principal); E86.0 Dehydration; O23.91 Unspecified genitourinary tract infection in pregnancy, first trimester; R82.71 Bacteriuria; Z3A.12 12 weeks gestation of pregnancy; O99.341 Other mental disorders complicating pregnancy, first trimester; F41.9 Anxiety disorder, unspecified; F32.9 Major depressive disorder, single episode, unspecified; Z79.899 Other long term (current) drug therapy; Z88.1 Allergy status to other antibiotic agents; Z88.8 Allergy status to other drugs, medicaments and biological substances
CPT/HCPCS: 36415; 80053; 81001; 83605; 83735; 85025; 93005; 96360; 99284

== ENCOUNTER 2020-09-24 16:24 | Outpatient (CLI) | payer OTHER ==
[2020-09-24 17:02] LABS: Appearance,Urine Clear (Clear); Bilirubin,Urine Negative (Negative); Blood,Urine Negative (Negative); Color,Urine Light Yellow; Glucose,Urine (UA) Negative (Negative); Ketones,Urine Negative (Negative); Leukocyte Esterase,Urine Trace (Negative); Nitrite,Urine Negative (Negative); Protein,Urine Negative (Negative); Specific Gravity,Urine 1.009 (1.001-1.035); Squamous Epithelial Cell,Urine 4 /hpf (0-4); Urobilinogen,Urine <2.0 mg/dL (<2.0); WBC,Urine 1 /hpf (0-5)
[2020-09-24 17:38] VITALS: BP 108/56; RESP 17; TEMP 98.1
--- NOTE | 2020-09-26 07:50 | P.MSEPDOC ---
Presenting Problems - Arrival Data Date of Arrival on Unit: 09/24/20 Time of Arrival on Unit: 16:24 Mode of Transport: Ambulatory - Complaint OB-Reason for Admission/Chief Complaint: Other Comment: weakness, dizzy, headache Medical History - Information : 2 Para: 1 Term: 1 : 0 Abortions: Spontaneous or Elective: 0 Number of Living Children: 1 - Gestational Age Gestational Age by ANNIA (wks/days): 29 Weeks and 3 Days Review of Systems - Review of Systems Constitutional: No problems Breast: No problems ENT: No problems Cardiovascular: No problems Respiratory: No problems Gastrointestinal: No problems Genitourinary: No problems Musculoskeletal: No problems Neurological: No problems Skin: No problems Vital Signs - Temperature Temperature: 98.1 F Temperature Source: Temporal Artery Scan - Pulse Right Brachial Pulse Assessment Method: Automatic Cuff - Respirations Respiratory Rate: 17 Oxygen Delivery Method: Room Air - Blood Pressure Right Arm Blood Pressure: 108/56 Blood Pressure Mean: 73 Medical Screen Scoring (Pre) - Cervical Exam Dilation: Exam Deferred Effacement: Exam Deferred Membranes: Intact - Uterine Contractions Frequency: N/A Duration: N/A Intensity: N/A - Maternal Vital Signs Maternal Temperature: N/A Maternal Blood Pressure: N/A Signs of Preeclampsia: N/A Maternal Respirations: N/A - Maternal Trauma Maternal Trauma: N/A - Assessment - Baby A Baseline FHR: 135 Heart Rate - NICHD Category: Category I (Normal) = 0 NST: Reactive Position: N/A Station: N/A - Total Score - Baby A Total Score - Baby A: 0 - Total Score - Baby B Total Score - Baby B: 0 - Total Score - Baby C Total Score - Baby C: 0 - Level of Risk - Baby A Level of Risk - Baby A: Low (0-5) - Level of Risk - Baby B Level of Risk - Baby B: Low (0-5) - Level of Risk - Baby C Level of Risk - Baby C: Low (0-5) Physician Notification (Pre) - Physician Notified Physician Notified Date: 09/24/20 Physician Notified Time: 17:05 New Order Received: Yes - Notification Comment Comment: urine results wnl, bp wnl, reactive nst, follow up on wednesday in office with Dr. Ching Disposition - Disposition OB Disposition: Triage, Discharge to home, Written follow up instructions reviewed I agree with the RN Medical Screening Exam: Yes Case reviewed; plan agreed upon as documented in EMR&OBIX.: Yes Diagnosis: RELATED CONDITIONS, UNSPECIFIED, THIRD TRIMESTER
== END 2020-09-24 17:27 | disposition home or self-care (01) ==
LOC: FBPOP 16:24
PROVIDERS: ATTEND Obstetrics & Gynecology
DX: O26.893 Other specified pregnancy related conditions, third trimester (principal); R51.9 Headache, unspecified; Z3A.29 29 weeks gestation of pregnancy; Z87.891 Personal history of nicotine dependence; Z88.1 Allergy status to other antibiotic agents; Z88.8 Allergy status to other drugs, medicaments and biological substances
CPT/HCPCS: 59025; 81001; 99213

== ENCOUNTER 2020-11-13 16:59 | Outpatient (CLI) | payer OTHER ==
[2020-11-13 18:43] VITALS: BP 102/56; PULSE 90; RESP 17
--- NOTE | 2020-11-20 17:41 | P.MSEPDOC ---
Presenting Problems - Arrival Data Date of Arrival on Unit: 11/13/20 Time of Arrival on Unit: 16:59 Mode of Transport: Ambulatory - Complaint OB-Reason for Admission/Chief Complaint: Rule Out PROM, Decreased Movement Comment: pt unsure if she is leaking fluid, also states has decreased movement Medical History - Information : 2 Para: 1 Term: 1 : 0 Abortions: Spontaneous or Elective: 0 Number of Living Children: 1 - Gestational Age Gestational Age by ANNIA (wks/days): 36 Weeks and 4 Days Review of Systems - Review of Systems Constitutional: No problems Breast: No problems ENT: No problems Cardiovascular: No problems Respiratory: No problems Gastrointestinal: No problems Genitourinary: No problems Musculoskeletal: No problems Neurological: No problems Skin: No problems Vital Signs - Pulse Right Brachial Pulse Rate: 90 Pulse Assessment Method: Automatic Cuff - Respirations Respiratory Rate: 17 Oxygen Delivery Method: Room Air - Blood Pressure Right Arm Blood Pressure: 102/56 Blood Pressure Mean: 71 Blood Pressure Source: Automatic Cuff Medical Screen Scoring - Cervical Exam Dilation (cm): 1.5 Effacement (%): 60 Station: -2 Membranes: Intact - Uterine Contractions Intensity: Mild Resting: Soft to palpation - Assessment - Baby A Baseline FHR: 125 Heart Rate - NICHD Category: Category I (Normal) NST: Reactive Physician Notification - Physician Notified Physician Notified Date: 11/13/20 Physician Notified Time: 17:45 Physician: Carlin Smith Order Received: Yes - Notification Comment Comment: if pt has reactive NST, and amniosure is negative pt may be discharged home Maternal Triage Index - Maternal Triage Index Presenting for scheduled procedure w/no complaint: No - Stat/Priority 1 Stat Priority 1: No - Urgent/Priority 2 Urgent Priority 2: No - Prompt/Priority 3 Prompt Priority 3: Yes Criteria Met for Priority 3: c/o possible SROM, decreased movement Disposition - Disposition OB Disposition: Triage, Discharge to home, Written follow up instructions reviewed Discharge Date: 11/13/20 Discharge Time: 18:03 I agree with the RN Medical Screening Exam: Yes Case reviewed; plan agreed upon as documented in EMR&OBIX.: Yes Diagnosis: DECREASED MOVEMENTS, THIRD TRIMESTER, FETUS 1
== END 2020-11-13 18:03 | disposition home or self-care (01) ==
LOC: FBPOP 16:59
PROVIDERS: ATTEND Obstetrics & Gynecology
DX: O36.8131 Decreased fetal movements, third trimester, fetus 1 (principal); Z3A.36 36 weeks gestation of pregnancy; Z88.1 Allergy status to other antibiotic agents; Z88.8 Allergy status to other drugs, medicaments and biological substances; Z87.891 Personal history of nicotine dependence
CPT/HCPCS: 59025; 84112; 99213

== ENCOUNTER 2020-11-27 16:31 | Outpatient (CLI) | payer OTHER ==
[2020-11-27 18:22] VITALS: BP 99/54; PULSE 67; RESP 16; TEMP 96.7
--- NOTE | 2020-12-13 08:41 | P.MSEPDOC ---
Presenting Problems - Arrival Data Date of Arrival on Unit: 11/27/20 Time of Arrival on Unit: 16:31 Mode of Transport: Ambulatory - Complaint OB-Reason for Admission/Chief Complaint: Possible Onset of Labor, Rule Out SROM Medical History - Information : 2 Para: 1 Term: 1 : 0 Abortions: Spontaneous or Elective: 0 Number of Living Children: 1 - Gestational Age Gestational Age by ANNIA (wks/days): 38 Weeks and 4 Days Review of Systems - Review of Systems Constitutional: No problems Breast: No problems ENT: No problems Cardiovascular: No problems Respiratory: No problems Gastrointestinal: No problems Genitourinary: No problems Musculoskeletal: No problems Neurological: No problems Skin: No problems Vital Signs - Temperature Temperature: 96.7 F Temperature Source: Temporal Artery Scan - Pulse Right Brachial Pulse Rate: 67 Pulse Assessment Method: Automatic Cuff - Respirations Respiratory Rate: 16 Oxygen Delivery Method: Room Air O2 Sat by Pulse Oximetry: 96 - Blood Pressure Right Arm Sitting Blood Pressure: 99/54 Blood Pressure Mean: 69 Blood Pressure Source: Automatic Cuff Medical Screen Scoring - Cervical Exam Dilation (cm): 2 Effacement (%): 0 Station: -3 Membranes: Intact - Uterine Contractions Frequency From (mins): 3 Frequency To (mins): 4 Duration From (seconds): 80 Duration To (seconds): 110 Intensity: Moderate Resting: Soft to palpation - Assessment - Baby A Baseline FHR: 125 Heart Rate - NICHD Category: Category I (Normal) NST: Reactive Physician Notification - Physician Notified Physician Notified Date: 11/27/20 Physician Notified Time: 18:08 Physician: Carlin Smith Order Received: Yes (discharge) Maternal Triage Index - Non-Urgent/Priority 4 Non-Urgent Priority 4: Yes Criteria Met for Priority 4: 38 weeks signs of early labor Disposition - Disposition OB Disposition: Triage, Discharge to home, Written follow up instructions reviewed Discharge Date: 11/27/20 Discharge Time: 18:11 I agree with the RN Medical Screening Exam: Yes Case reviewed; plan agreed upon as documented in EMR&OBIX.: Yes Diagnosis: FALSE LABOR AT OR AFTER 37 COMPLETED WEEKS OF GESTATION
== END 2020-11-27 18:11 | disposition home or self-care (01) ==
LOC: FBPOP 16:31
PROVIDERS: ATTEND Obstetrics & Gynecology
DX: O47.1 False labor at or after 37 completed weeks of gestation (principal); Z3A.38 38 weeks gestation of pregnancy; Z88.1 Allergy status to other antibiotic agents; Z88.6 Allergy status to analgesic agent; Z87.891 Personal history of nicotine dependence
CPT/HCPCS: 59025; 84112; 99213

== ENCOUNTER 2020-11-29 01:55 | Outpatient (CLI) | payer OTHER ==
[2020-11-29 05:21] VITALS: BP 114/66; PULSE 67; RESP 16; TEMP 96.7
--- NOTE | 2020-11-29 08:30 | P.MSEPDOC ---
Presenting Problems - Arrival Data Date of Arrival on Unit: 11/29/20 Time of Arrival on Unit: 01:55 Mode of Transport: Wheelchair - Complaint OB-Reason for Admission/Chief Complaint: Possible Onset of Labor Comment: contractions 3-4mins apart since midnight Medical History - Information : 2 Para: 1 Term: 1 : 0 Abortions: Spontaneous or Elective: 0 Number of Living Children: 1 - Gestational Age Gestational Age by ANNIA (wks/days): 38 Weeks and 6 Days Review of Systems - Review of Systems Constitutional: No problems Breast: No problems ENT: No problems Cardiovascular: No problems Respiratory: No problems Gastrointestinal: No problems Genitourinary: No problems Musculoskeletal: No problems Neurological: No problems Skin: No problems Vital Signs - Temperature Temperature: 96.7 F Temperature Source: Temporal Artery Scan - Pulse Pulse Oximetery Pulse Rate: 67 Pulse Assessment Method: Pulse Oximetry - Respirations Respiratory Rate: 16 Oxygen Delivery Method: Room Air O2 Sat by Pulse Oximetry: 98 - Blood Pressure Right Arm Blood Pressure: 114/66 Blood Pressure Mean: 82 Blood Pressure Source: Automatic Cuff Medical Screen Scoring - Cervical Exam Dilation (cm): 3.5 Effacement (%): 60 Station: -2 Membranes: Intact - Uterine Contractions Frequency From (mins): 2 Frequency To (mins): 5 Duration From (seconds): 40 Duration To (seconds): 90 Intensity: Mild Resting: Soft to palpation - Assessment - Baby A Baseline FHR: 120 Heart Rate - NICHD Category: Category I (Normal) NST: Reactive Physician Notification - Physician Notified Physician Notified Date: 11/29/20 Physician Notified Time: 03:42 Physician: Kristy Watt Order Received: Yes - Notification Comment Comment: Dr. Watt called, report given on maternal and status, complaints of. contractions that are now every 2-5mins with some uterine irritability, pt has had. increased pain with contractions since being in triage, NST reactive, vitals WNL. Pt has. a 40-45min drive home and is scheduled for induction on wednesday. Orders to keep pt for. another hour or 2 and recheck cervix. Pt can come off of the monitor and walk. Notify. Dr. Watt following exam. 6 - Dr. Watt called, update given on SVE unchanged, pt states contractions are. about the same but does not appear as uncomfortable as before. Orders to discharge pt. home with instructions to monitor for increase in contractions/signs of active labor. Maternal Triage Index - Maternal Triage Index Presenting for scheduled procedure w/no complaint: No - Stat/Priority 1 Stat Priority 1: No - Urgent/Priority 2 Urgent Priority 2: No - Prompt/Priority 3 Prompt Priority 3: No - Non-Urgent/Priority 4 Non-Urgent Priority 4: Yes Criteria Met for Priority 4: 38 6/7 weeks, contractions every 2-5mins but pt is able to cope with them easily and no cervical change in several hours Disposition - Disposition OB Disposition: Discharge to home Discharge Date: 11/29/20 Discharge Time: 05:02 I agree with the RN Medical Screening Exam: Yes Case reviewed; plan agreed upon as documented in EMR&OBIX.: Yes Diagnosis: FALSE LABOR AT OR AFTER 37 COMPLETED WEEKS OF GESTATION
== END 2020-11-29 05:02 | disposition home or self-care (01) ==
LOC: FBPOP 01:55
PROVIDERS: ATTEND Obstetrics & Gynecology
DX: O47.1 False labor at or after 37 completed weeks of gestation (principal); Z3A.38 38 weeks gestation of pregnancy; Z88.1 Allergy status to other antibiotic agents; Z88.8 Allergy status to other drugs, medicaments and biological substances; Z87.891 Personal history of nicotine dependence
CPT/HCPCS: 59025; 84112; 99213

== ENCOUNTER 2020-11-29 06:00 | Inpatient (IN) | payer OTHER ==
[2020-11-29] MEDS ORDERED: TERBUTALINE 1 MG/ML VIAL SQ PRN (21:18)
[2020-11-29] MEDS ORDERED: AMPICILLIN 2,000 MG in SODIUM CHLORIDE 0.9% 100 ML IVPB STA (21:18)
[2020-11-29] MEDS ORDERED: LIDOCAINE 0.5% (PF) 5 MG/ML (50 ML SDV) SQ PRN (21:18)
[2020-11-29] MEDS ORDERED: CARBOPROST TROMETHAMINE 250 MCG/ML 1 ML AMP IM PRN (21:18)
[2020-11-29] MEDS ORDERED: OXYTOCIN 10 UNIT/ML 1 ML VIAL IM PRN (21:18)
[2020-11-29] MEDS ORDERED: METHYLERGONOVINE 0.2 MG/ML 1 ML AMP IM PRN (21:18)
[2020-11-29] MEDS ORDERED: MORPHINE SULFATE 4 MG/ML SYRINGE IM STA (21:20)
--- NOTE | 2020-11-29 21:24 | P.HPOB ---
History of Present Illness H&P Date: 11/29/20 Chief Complaint: prolonged latent labor 20-year-old presents at 38 weeks and 6 days in prolonged latent labor. Her cervix is 3 cm dilated, 70% effaced, and -1 station. She is yesi irregularly every 5-10 minutes for the last 3 days. Her cervix has been making slow change and she has not gotten any sleep. She is being admitted for morphine rest and then Pitocin in the morning when she is 39 weeks. Review of Systems All systems: negative Constitutional: Denies chills, Denies fever Eyes: denies blurred vision, denies pain Ears, nose, mouth and throat: Denies headache, Denies sore throat Cardiovascular: Denies chest pain, Denies shortness of breath Respiratory: Denies cough Gastrointestinal: Denies abdominal pain, Denies diarrhea, Denies nausea, Denies vomiting Genitourinary: Denies dysuria, Denies hematuria Musculoskeletal: Denies myalgias Integumentary: Denies pruritus, Denies rash Neurological: Denies numbness, Denies weakness Psychiatric: Denies anxiety, Denies depression Endocrine: Denies fatigue, Denies weight change Past Medical History Past Medical History: Asthma Additional Past Medical History / Comment(s): migraines, History of Any Multi-Drug Resistant Organisms: None Reported Past Surgical History: No Surgical Hx Reported Additional Past Surgical History / Comment(s): oral Smoking Status: Never smoker Medications and Allergies Home Medications Medication Instructions Recorded Confirmed Type Dyj-[id number]-Sxrwm Acid 1 cap PO HS 05/29/20 11/29/20 History [-U Capsule (formulary)] Ferrous Sulfate [Iron (65 MG 325 mg PO DAILY 09/24/20 11/29/20 History Elemental)] Omeprazole 20 mg PO DAILY 11/13/20 11/29/20 History Allergies Allergy/AdvReac Type Severity Reaction Status Date / Time azithromycin [From Zithromax] Allergy Swelling Verified 11/29/20 20:41 Cephalosporins Allergy Rash/Hives Verified 11/29/20 20:41 methylphenidate AdvReac Rapid Verified 11/29/20 20:41 [From Concerta] Heart Rate Exam Osteopathic Statement: *. No significant issues noted on an osteopathic structural exam other than those noted in the History and Physical/Consult. Intake and Output 11/29/20 11/29/20 11/29/20 06:59 14:59 22:59 Other: Weight 66.224 kg Heart: Regular rate and rhythm Lungs: Clear to auscultation bilaterally Abdomen: Soft, nontender Extremities: Negative Homans sign Assessment and Plan (1) Prolonged latent phase of labor Current Visit: Yes Status: Acute Code(s): O63.0 - PROLONGED FIRST STAGE (OF LABOR) SNOMED Code(s): 535390769 (2) Positive GBS test Current Visit: Yes Status: Acute Code(s): B95.1 - STREPTOCOCCUS, GROUP B, CAUSING DISEASES [facility] SNOMED Code(s): 522628149 Plan: 1. Admit to family place 2. Morphine rest with 10 mg of morphine IM 3. Pitocin and amniotomy in the morning for induction unless patient wakes up in active labor 4. Anticipate normal vaginal delivery 5. GBS prophylaxis
[2020-11-29] MEDS ORDERED: LACTATED RINGERS 1,000 ML IV SCH (21:30)
[2020-11-30] MEDS ORDERED: AMPICILLIN 1,000 MG in SODIUM CHLORIDE 0.9% 50 ML IVPB SCH ×2 (02:00→10:00)
[2020-11-30] MEDS ORDERED: LACTATED RINGERS 1,000 ML IV SCH (06:00)
[2020-11-30] MEDS: OXYTOCIN 30 UNITS/500 ML NS 30 UNIT in SALINE 1 500ML.BAG IV SCH ×2 (06:15→13:49)
[2020-11-30 06:26] LABS: Basophils % (A) 0 %; Eosinophils # (A) 0.2 k/uL (0-0.7); Eosinophils % (A) 2 %; HCT 33.3 % (34.0-46.0); HGB 11.4 gm/dL (11.4-16.0); Lymphocytes # (A) 1.2 k/uL (1.0-4.8); Lymphocytes % (A) 15 %; MCH 33.5 pg (25.0-35.0); MCHC 34.3 g/dL (31.0-37.0); MCV 97.7 fL (80.0-100.0); Mean Platelet Volume 9.5; Monocytes # (A) 0.3 k/uL (0-1.0); Monocytes % (A) 4 %; Neutrophils # (A) 6.4 k/uL (1.3-7.7); Neutrophils % (A) 77 %; Platelet Count 135 k/uL (150-450); RBC 3.41 m/uL (3.80-5.40); RDW 14.1 % (11.5-15.5); WBC 8.3 k/uL (3.8-10.6)
[2020-11-30] MEDS ORDERED: ONDANSETRON 4 MG/2 ML VIAL IVP STA (06:34)
[2020-11-30] MEDS ORDERED: SODIUM CHLORIDE 0.9% 100 ML BAG ONE (09:32)
[2020-11-30] MEDS ORDERED: ROPIVACAINE 5MG/ML 20ML VIAL ONE (09:32)
[2020-11-30] MEDS ORDERED: fentaNYL (PF) 50 MCG/ML 5 ML AMP ONE (09:32)
[2020-11-30 13:59] VITALS: RESP 16
[2020-11-30] MEDS ORDERED: diphenhydrAMINE 25 MG CAP PO PRN (14:14)
[2020-11-30] MEDS ORDERED: ACETAMINOPHEN TAB 325 MG TAB PO PRN (14:14)
[2020-11-30] MEDS ORDERED: ZOLPIDEM 5 MG TAB PO PRN (14:14)
[2020-11-30] MEDS ORDERED: diphenhydrAMINE 50 MG CAP PO PRN (14:14)
[2020-11-30] MEDS ORDERED: BENZOCAINE/MENTHOL SPRAY 1 GM/SPRAY AEROSOL TOPICAL PRN (14:14)
[2020-11-30] MEDS ORDERED: SIMETHICONE 80 MG CHEWABLE PO PRN (14:14)
[2020-11-30] MEDS ORDERED: IBUPROFEN 600 MG TAB PO SCH (14:30)
[2020-11-30] MEDS ORDERED: CITALOPRAM HYDROBROMIDE 10 MG TAB PO SCH (16:30)
[2020-11-30 18:42] VITALS: BP 110/62; PULSE 64; TEMP 97.8
[2020-11-30] MEDS ORDERED: SENNOSIDES-DOCUSATE SODIUM 1 EACH TAB PO SCH (20:00)
--- NOTE | 2020-12-01 03:09 | P.PROBDLV ---
Vaginal Delivery Note - . Vaginal Delivery Note: 20-year-old presents at 38 weeks and 6 days in prolonged latent labor. Her cervix is 3 cm dilated, 70% effaced, and -1 station. She is yesi irregularly every 5-10 minutes for the last 3 days. Her cervix has been making slow change and she has not gotten any sleep. She was admitted for morphine rest. She turned 39 weeks on 11/30/2020. Pitocin was started and amniotomy performed at 9:17 AM clear fluid noted. When she was uncomfortable she got an epidural. She dilated to complete, pushed and delivered a viable male infant over intact perineum under epidural anesthesia at 1307. Head delivered OA, nuchal cord 1 easily reduced, anterior shoulder delivered gentle downward guidance over posterior shoulder and rest of body. Nose and mouth bulb suctioned, cord clamped cut, infant placed on mother's abdomen. Apgars 7, 7, weight 7 pounds 2.6 ounces. Placenta delivered spontaneously, intact with three-vessel cord at 1308. Vagina, cervix, perineum inspected. No lacerations noted. Estimated blood loss 200 mL. Mother and baby in stable condition.
--- NOTE | 2020-12-01 03:11 | P.DS ---
Providers Date of admission: 11/29/20 20:25 Expected date of discharge: 11/30/20 Attending physician: Devi Ching Primary care physician: Stated None - Discharge Diagnosis(es) (1) Prolonged latent phase of labor Status: Resolved (2) Positive GBS test Status: Resolved (3) Status post normal vaginal delivery Status: Acute Hospital Course: Patient presented for morphine rest and then induction of labor for a long latent phase of labor. She underwent a normal vaginal delivery. course was uncomplicated. Senior Java Software Developer evaluated the baby and determined that there could be possible heart defect. The baby needed to be transferred to the hospital so the mother also asked to be discharged. She'll be discharged home day #0 in stable condition to follow-up with me in a few weeks. Patient Condition at Discharge: Good Plan - Discharge Summary New Discharge Prescriptions: No Action Fie-Tqdf-Pfird Acid [-U Capsule (formulary)] 1 cap PO HS Ferrous Sulfate [Iron (65 MG Elemental)] 325 mg PO DAILY Omeprazole 20 mg PO DAILY Citalopram Hydrobromide [CeleXA] 10 mg PO DAILY Discharge Medication List Dbs-Hiqx-Mlqot Acid [-U Capsule (formulary)] 1 cap PO HS 05/29/20 [History] Ferrous Sulfate [Iron (65 MG Elemental)] 325 mg PO DAILY 09/24/20 [History] Omeprazole 20 mg PO DAILY 11/13/20 [History] Citalopram Hydrobromide [CeleXA] 10 mg PO DAILY 11/29/20 [History] Discharge Disposition: HOME SELF-CARE
== END 2020-11-30 18:30 | disposition home or self-care (01) | DRG 807 ==
LOC: 4FBP 20:25
PROVIDERS: ADMIT Obstetrics & Gynecology; ATTEND Obstetrics & Gynecology
PROC: 3E0R3NZ Introduction of Analgesics, Hypnotics, Sedatives into Spinal Canal, Percutaneous Approach (ICD-10-PCS; principal; 2020-11-30)
PROC: 3E033VJ Introduction of Other Hormone into Peripheral Vein, Percutaneous Approach (ICD-10-PCS; principal; 2020-11-30)
PROC: 00HU33Z Insertion of Infusion Device into Spinal Canal, Percutaneous Approach (ICD-10-PCS; principal; 2020-11-30)
PROC: 10907ZC Drainage of Amniotic Fluid, Therapeutic from Products of Conception, Via Natural or Artificial Opening (ICD-10-PCS; principal; 2020-11-30)
PROC: 10E0XZZ Delivery of Products of Conception, External Approach (ICD-10-PCS; principal; 2020-11-30)
DX: O63.0 Prolonged first stage (of labor) (principal); Z37.0 Single live birth; O69.81X0 Labor and delivery complicated by cord around neck, without compression, not applicable or unspecified; J45.909 Unspecified asthma, uncomplicated; O99.52 Diseases of the respiratory system complicating childbirth; O99.824 Streptococcus B carrier state complicating childbirth; Z3A.38 38 weeks gestation of pregnancy; Z3A.39 39 weeks gestation of pregnancy; G43.909 Migraine, unspecified, not intractable, without status migrainosus; Z88.1 Allergy status to other antibiotic agents; Z88.8 Allergy status to other drugs, medicaments and biological substances; Z79.899 Other long term (current) drug therapy
CPT/HCPCS: 85025; 86850; 86900; 86901

== ENCOUNTER 2021-06-21 00:41 | Emergency (ER) | payer OTHER ==
[2021-06-21] MEDS ORDERED: ACETAMINOPHEN TAB 325 MG TAB PO STA (01:00)
[2021-06-21] MEDS ORDERED: DEXAMETHASONE SOD PHOSPHATE 10 MG/ML 1 ML VIAL IVP STA (01:05)
--- NOTE | 2021-06-21 01:42 | XR ---
EXAMINATION TYPE: XR chest 1V portable DATE OF EXAM: 06/21/2021 COMPARISON: 04/10/2019 HISTORY: Cough and short of breath pneumonia. TECHNIQUE: Single view FINDINGS: Heart and mediastinum are normal. Lungs are clear. Diaphragm is normal. Bony thorax appears normal. There are chest leads. IMPRESSION: Normal chest. No change.
[2021-06-21 01:47] LABS: Basophils # (A) 0.1 k/uL (0-0.2); Basophils % (A) 1 %; Eosinophils % (A) 0 %; HCT 36.5 % (34.0-46.0); HGB 11.8 gm/dL (11.4-16.0); Lymphocytes # (A) 0.4 k/uL (1.0-4.8); Lymphocytes % (A) 5 %; MCH 31.2 pg (25.0-35.0); MCHC 32.2 g/dL (31.0-37.0); MCV 96.8 fL (80.0-100.0); Mean Platelet Volume 9.1; Monocytes # (A) 0.3 k/uL (0-1.0); Monocytes % (A) 4 %; Neutrophils # (A) 6.6 k/uL (1.3-7.7); Neutrophils % (A) 88 %; Platelet Count 201 k/uL (150-450); RBC 3.77 m/uL (3.80-5.40); RDW 12.4 % (11.5-15.5); WBC 7.5 k/uL (3.8-10.6)
[2021-06-21] MEDS ORDERED: BACITRACIN OINT 1 EACH PACKET TOPICAL ONE (01:53)
--- NOTE | 2021-06-21 01:59 | ED ---
SOB HPI - General Chief Complaint: Shortness of Breath Stated Complaint: SOB Time Seen by Provider: 06/21/21 00:52 Source: patient, RN notes reviewed Mode of arrival: ambulatory - History of Present Illness Initial Comments: This is a pleasant 21-year-old female vanish of asthma states she started getting sick on Wednesday. Patient states she has a dry cough, headache, body aches, backache, shortness of breath, and intermittent chest pains. Patient does have a son who is diagnosed with COVID-19. Patient states she had her first Pfizer vaccination in April but has not had the second one as of yet. No headache, no changes in vision or hearing, no sore throat or difficulty with speech, no neck pain, no abdominal pain, no nausea or vomiting, no changes in urination or bowel movements, no numbness or tingling, no extremity pain, no skin rashes or lesions. Note that the patient has had some shaking chills and subjective fever - Related Data Home Medications Medication Instructions Recorded Confirmed Xim-Jjvb-Cardp Acid 1 cap PO HS 05/29/20 11/29/20 [-U Capsule (formulary)] Ferrous Sulfate [Iron (65 MG 325 mg PO DAILY 09/24/20 11/29/20 Elemental)] Omeprazole 20 mg PO DAILY 11/13/20 11/29/20 Citalopram Hydrobromide [CeleXA] 10 mg PO DAILY 11/29/20 11/29/20 Previous Rx's Medication Instructions Recorded Benzonatate [Tessalon Perles] 200 mg PO TID PRN #30 capsule 06/21/21 predniSONE 50 mg PO DAILY #5 tab 06/21/21 Allergies Allergy/AdvReac Type Severity Reaction Status Date / Time azithromycin [From Zithromax] Allergy Swelling Verified 06/21/21 00:45 Cephalosporins Allergy Rash/Hives Verified 06/21/21 00:45 methylphenidate AdvReac Rapid Verified 06/21/21 00:45 [From Concerta] Heart Rate Review of Systems ROS Statement: Those systems with pertinent positive or pertinent negative responses have been documented in the HPI. ROS Other: All systems not noted in ROS Statement are negative. Past Medical History Past Medical History: Asthma Additional Past Medical History / Comment(s): migraines, History of Any Multi-Drug Resistant Organisms: None Reported Past Surgical History: No Surgical Hx Reported Additional Past Surgical History / Comment(s): oral Past Anesthesia/Blood Transfusion Reactions: No Reported Reaction Past Psychological History: Anxiety, Depression Smoking Status: Never smoker Past Alcohol Use History: None Reported Past Drug Use History: None Reported - Past Family History Father History Unknown: Yes General Exam - General Exam Comments Initial Comments: Anxious appearing 21-year-old female in mild distress. Patient appears to be ill but not toxic. Vital signs are reviewed. Patient noted to be tachycardic. SpO2 100% on room air. General appearance: alert, in no apparent distress Head exam: Present: atraumatic, normocephalic, normal inspection Eye exam: Present: normal appearance, PERRL, EOMI. Absent: scleral icterus, conjunctival injection, periorbital swelling ENT exam: Present: normal exam, mucous membranes moist Neck exam: Present: normal inspection. Absent: tenderness, meningismus, lymphadenopathy Respiratory exam: Present: normal lung sounds bilaterally, other (Patient has a harsh, dry cough throughout the course of my physical examination and interview.). Absent: respiratory distress, wheezes, rales, rhonchi, stridor, chest wall tenderness, accessory muscle use Cardiovascular Exam: Present: normal rhythm, tachycardia, normal heart sounds. Absent: systolic murmur, diastolic murmur, rubs, gallop, clicks GI/Abdominal exam: Present: soft, normal bowel sounds. Absent: distended, tenderness, guarding, rebound, rigid Extremities exam: Present: normal inspection, full ROM, normal capillary refill. Absent: tenderness, pedal edema, joint swelling, calf tenderness Back exam: Present: normal inspection Neurological exam: Present: alert, oriented X3, CN II-XII intact Psychiatric exam: Present: normal affect, normal mood Skin exam: Present: warm, dry, intact, normal color. Absent: rash Course Vital Signs 06/21/21 06/21/21 00:42 00:54 Temperature 98.4 F Pulse Rate 110 H Respiratory 19 22 Rate Blood Pressure 122/73 O2 Sat by Pulse 100 Oximetry Medical Decision Making - Medical Decision Making Patient presents with symptomatology consistent with viral bronchitis, likely COVID-19. Patient had a negative test as an outpatient but has been exposed to her son who has conferred COVID-19. Patient has been vaccinated with the first of the visor series. However she does not have the second backstage as of yet. Nonsmoker, no alcohol or drug abuse. Positive asthma history. Patient went to urgent care yesterday and was given an injection of corticosteroids. EKG read by me at 112 and reveals QT interval 471 ms with regards QTc. Normal intervals otherwise. Normal sinus rhythm with a rate of 85. Nonspecific T-wave abnormalities noted, baseline artifact. No ST elevation. No comparison study. Patient's COVID-19 testing was negative. However given the patient's symptomology and the fact that her child has COVID-19 suspect that she has a illness and is just not showing in a virus to make the test positive. We'll treat as such. There is no evidence of lobar pneumonia. Patient's findings are consistent with viral bronchitis and viral syndrome. Patient was educated on all findings. All questions answered. Patient was told to return to the ER for any signs or symptoms worsen. Told to return immediately if any other problems arise. All questions answered. Treatment plan discussed. Patient in agreement - Lab Data Result diagrams: 06/21/21 01:28 06/21/21 01:28 Lab Results 06/21/21 06/21/21 06/21/21 Range/Units 01:28 01:28 01:28 WBC 7.5 (3.8-10.6) k/uL RBC 3.77 L (3.80-5.40) m/uL Hgb 11.8 (11.4-16.0) gm/dL Hct 36.5 (34.0-46.0) % MCV 96.8 (80.0-100.0) fL MCH 31.2 (25.0-35.0) pg MCHC 32.2 (31.0-37.0) g/dL RDW 12.4 (11.5-15.5) % Plt Count 201 (150-450) k/uL MPV 9.1 Neutrophils % 88 % Lymphocytes % 5 % Monocytes % 4 % Eosinophils % 0 % Basophils % 1 % Neutrophils # 6.6 (1.3-7.7) k/uL Lymphocytes # 0.4 L (1.0-4.8) k/uL Monocytes # 0.3 (0-1.0) k/uL Eosinophils # 0.0 (0-0.7) k/uL Basophils # 0.1 (0-0.2) k/uL D-Dimer (<0.60) mg/L FEU Sodium 139 (137-145) mmol/L Potassium 3.3 L (3.5-5.1) mmol/L Chloride 107 (98-107) mmol/L Carbon Dioxide 19 L (22-30) mmol/L Anion Gap 13 mmol/L BUN 8 (7-17) mg/dL Creatinine 0.40 L (0.52-1.04) mg/dL Est GFR (CKD-EPI)AfAm >90 (>60 ml/min/1.73 sqM) Est GFR (CKD-EPI)NonAf >90 (>60 ml/min/1.73 sqM) Glucose 121 H (74-99) mg/dL Calcium 9.6 (8.4-10.2) mg/dL Magnesium 1.7 (1.6-2.3) mg/dL Total Bilirubin 0.3 (0.2-1.3) mg/dL AST 25 (14-36) U/L ALT 22 (4-34) U/L Alkaline Phosphatase 77 (38-126) U/L Troponin I <0.012 (0.000-0.034) ng/mL C-Reactive Protein 8.0 H (<1.0) mg/dL Total Protein 6.8 (6.3-8.2) g/dL Albumin 3.9 (3.5-5.0) g/dL Influenza Type A (PCR) (Not Detectd) Influenza Type B (PCR) (Not Detectd) RSV (PCR) (Not Detectd) SARS-CoV-2 (PCR) (Not Detectd) 06/21/21 06/21/21 Range/Units 01:28 01:28 WBC (3.8-10.6) k/uL RBC (3.80-5.40) m/uL Hgb (11.4-16.0) gm/dL Hct (34.0-46.0) % MCV (80.0-100.0) fL MCH (25.0-35.0) pg MCHC (31.0-37.0) g/dL RDW (11.5-15.5) % Plt Count (150-450) k/uL MPV Neutrophils % % Lymphocytes % % Monocytes % % Eosinophils % % Basophils % % Neutrophils # (1.3-7.7) k/uL Lymphocytes # (1.0-4.8) k/uL Monocytes # (0-1.0) k/uL Eosinophils # (0-0.7) k/uL Basophils # (0-0.2) k/uL D-Dimer 0.32 (<0.60) mg/L FEU Sodium (137-145) mmol/L Potassium (3.5-5.1) mmol/L Chloride (98-107) mmol/L Carbon Dioxide (22-30) mmol/L Anion Gap mmol/L BUN (7-17) mg/dL Creatinine (0.52-1.04) mg/dL Est GFR (CKD-EPI)AfAm (>60 ml/min/1.73 sqM) Est GFR (CKD-EPI)NonAf (>60 ml/min/1.73 sqM) Glucose (74-99) mg/dL Calcium (8.4-10.2) mg/dL Magnesium (1.6-2.3) mg/dL Total Bilirubin (0.2-1.3) mg/dL AST (14-36) U/L ALT (4-34) U/L Alkaline Phosphatase (38-126) U/L Troponin I (0.000-0.034) ng/mL C-Reactive Protein (<1.0) mg/dL Total Protein (6.3-8.2) g/dL Albumin (3.5-5.0) g/dL Influenza Type A (PCR) Not Detected (Not Detectd) Influenza Type B (PCR) Not Detected (Not Detectd) RSV (PCR) Not Detected (Not Detectd) SARS-CoV-2 (PCR) Not Detected (Not Detectd) Disposition Clinical Impression: Acute bronchitis, Suspected COVID-19 virus infection, Anxiety Disposition: HOME SELF-CARE Condition: Stable Instructions (If sedation given, give patient instructions): Acute Bronchitis (ED), Asthma (ED), Coronavirus Disease 2019 (COVID-19) Additional Instructions: Use [id number]-[id number] acetaminophen as needed for fever and discomfort. Do not take any anti-inflammatory medication while here on the prednisone. Continue your your home inhaler. He can use the cough medicine as needed. Instructions for suspected COVID-19 As you are at risk for symptoms due to coronavirus, please stay home and stay away from others as much as possible. Please maintain social distance of 6 feet if possible. You should not return to work until at least 3 days (72 hours) have passed since recovery of symptoms. This defined as resolution of fever without the use of fever reducing medicines and improvement in respiratory symptoms (e.g,, cough, shortness of breath) Isolation can end at least 5 days after symptom onset and after fever ends for 24 hours (without the use of fever-reducing medication) and symptoms are improving, if these people can continue to properly wear a well-fitted mask around others for 5 more days after the 5-day isolation period. If you're still having symptoms at the end of 5 day period, isolate for an additional 5 days. More information about what to do if you are sick can be found on the CDC website at https://www.cdc.gov/coronavirus/2019-nc ov/fq-gyk-gvh-sick/bucyd-zptm-bnin.html Expect the symptoms to last for 7-14 days from onset. Use acetaminophen (Tylenol) as needed for discomfort. You can take a maximum of 1 gram every 6 hours for discomfort, with your total dose in 24 hours not exceeding 4 grams. Be sure to maintain hydration. Drink continuous water and/or items high in vitamin C, such as orange juice and/or lemonade. Unless you have high blood pressure, you may consider Sudafed (which is [id number]) for nasal congestion. I would suggest that a short acting Sudafed rather than the 24 hour Sudafed. For a cough you may take Mucinex or Robitussin. Also consider the use of Vicks Vapor Rub or your chest when you sleep. Use a humidifier that is cleaned frequently, in the bedroom at night. For Nausea /Vomiting/Diarrhea associated with your Illness: o Small frequent sips of room temperature liquids. o Diet: [place] [employer] - If you are still experiencing discomfort and/or nausea please slowly advancing your diet using the BRAT Diet = bananas, rice, apples/apple sauce, toast. o With diarrhea avoid any dairy for 48 hours after symptoms resolved. o Continue with activity as tolerated. If your symptoms do get worse and you believe that the upper respiratory infection has developed into something else, such as pneumonia or severe dehydration, please return to the emergency department or follow-up with your primary care. But expect to be symptomatic for the days as indicated above Prescriptions: predniSONE 50 mg PO DAILY #5 tab Benzonatate [Tessalon Perles] 200 mg PO TID PRN #30 capsule PRN Reason: Cough Is patient prescribed a controlled substance at d/c from ED?: No Referrals: Nonstaff,Physician [Primary Care Provider] - 06/25/21 Time of Disposition: 03:08
[2021-06-21 02:01] LABS: ALT 22 U/L (4-34); AST 25 U/L (14-36); African American GFR (CKD) >90 (>60 ml/min/1.73 sqM); Albumin 3.9 g/dL (3.5-5.0); Alkaline Phosphatase 77 U/L (38-126); Anion Gap 13 mmol/L; Blood Urea Nitrogen 8 mg/dL (7-17); Calcium 9.6 mg/dL (8.4-10.2); Carbon Dioxide 19 mmol/L (22-30); Chloride 107 mmol/L (98-107); Glucose 121 mg/dL (74-99); Magnesium 1.7 mg/dL (1.6-2.3); Non-African American GFR(CKD) >90 (>60 ml/min/1.73 sqM); Potassium 3.3 mmol/L (3.5-5.1); Sodium 139 mmol/L (137-145); Total Bilirubin 0.3 mg/dL (0.2-1.3); Total Protein 6.8 g/dL (6.3-8.2)
[2021-06-21] MEDS ORDERED: POTASSIUM CHLORIDE ER 20 MEQ TAB.ER PO STA (02:04)
[2021-06-21 02:25] LABS: Influenza A Not Detected (Not Detectd); Influenza B Not Detected (Not Detectd)
[2021-06-21] MEDS ORDERED: SODIUM CHLORIDE 0.9% 1,000 ML IV ONE (02:45)
[2021-06-21] MEDS ORDERED: LORazepam 2 MG/ML INJ IV STA (03:02)
[2021-06-21] MEDS ORDERED: BENZONATATE 100 MG CAP PO STA (03:03)
[2021-06-21 04:33] VITALS: BP 106/75; PULSE 87; RESP 16; TEMP 97.9
== END 2021-06-21 04:32 | disposition home or self-care (01) ==
LOC: EC 00:41
DX: J20.9 Acute bronchitis, unspecified (principal); F41.9 Anxiety disorder, unspecified; Z20.822 Contact with and (suspected) exposure to COVID-19; J45.909 Unspecified asthma, uncomplicated; F32.A Depression, unspecified; Z79.899 Other long term (current) drug therapy
CPT/HCPCS: 36415; 93005; 85379; 80053; 83735; 84484; 85025; 86140; 87636; 71045; 99285; 96374; 96375; 96361; J2060; J1100

== ENCOUNTER 2021-06-27 20:05 | Emergency (ER) | payer OTHER ==
[2021-06-27 21:12] VITALS: BP 116/77; PULSE 90; RESP 20; TEMP 98
--- NOTE | 2021-06-27 21:52 | XR ---
EXAMINATION TYPE: XR knee complete RT DATE OF EXAM: 06/27/2021 9:26 PM INDICATION: Patient age:Female; 21 years old; Reason for study: pain/injury; COMPARISON: None. TECHNIQUE: The Right knee(s) was examined in 3 projections. FINDINGS: No evidence of any acute osseous pathology, joint space narrowing, soft tissue swelling, or joint effusion is noted. IMPRESSION: 1. No acute osseous pathology.
--- NOTE | 2021-06-27 21:53 | XR ---
EXAMINATION TYPE: XR ankle complete RT DATE OF EXAM: 06/27/2021 9:26 PM INDICATION: Patient age:Female; 21 years old; Reason for study: pain/injury; COMPARISON: None TECHNIQUE: The right ankle is imaged in 3 projections. FINDINGS: There is no evidence of acute osseous pathology. The joint spaces are well-preserved without evidenc e of subluxation or dislocation. Kager's fat pad is intact. Soft tissues are within normal limits. No radiopaque foreign bodies are identified. IMPRESSION: 1. No evidence of acute fracture.
[2021-06-27] MEDS ORDERED: IBUPROFEN 600 MG STARTER PACK 4 TAB BTL PO STA (22:55)
[2021-06-27] MEDS ORDERED: ACETAMINOPHEN TAB 500 MG TAB PO STA (22:55)
--- NOTE | 2021-06-27 22:55 | ED ---
Lower Extremity Injury HPI - General Chief Complaint: Extremity Injury, Lower Stated Complaint: RT knee pain Time Seen by Provider: 06/27/21 22:44 Source: patient Mode of arrival: wheelchair Limitations: no limitations - History of Present Illness Initial Comments: 21-year-old female patient presents to the emergency department today for evaluation of right knee and right ankle pain after injury. 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 States she's been having pain to the area ever since. She is able to walk but it is painful for her. Denies numbness or tingling to the leg. Shows have a history of right meniscus injury. She denies falling, hitting her head, or sustaining any other injuries. Denies taking any medication for pain. Denies chance of . - Related Data Home Medications Medication Instructions Recorded Confirmed Pyy-Lolr-Flliq Acid 1 cap PO HS 05/29/20 11/29/20 [-U Capsule (formulary)] Ferrous Sulfate [Iron (65 MG 325 mg PO DAILY 09/24/20 11/29/20 Elemental)] Omeprazole 20 mg PO DAILY 11/13/20 11/29/20 Citalopram Hydrobromide [CeleXA] 10 mg PO DAILY 11/29/20 11/29/20 Previous Rx's Medication Instructions Recorded Benzonatate [Tessalon Perles] 200 mg PO TID PRN #30 capsule 06/21/21 predniSONE 50 mg PO DAILY #5 tab 06/21/21 Ibuprofen [Motrin] 600 mg PO Q8HR PRN #30 tab 06/27/21 Allergies Allergy/AdvReac Type Severity Reaction Status Date / Time azithromycin [From Zithromax] Allergy Swelling Verified 06/27/21 21:08 Cephalosporins Allergy Rash/Hives Verified 06/27/21 21:08 methylphenidate AdvReac Rapid Verified 06/27/21 21:08 [From Concerta] Heart Rate Review of Systems ROS Statement: Those systems with pertinent positive or pertinent negative responses have been documented in the HPI. ROS Other: All systems not noted in ROS Statement are negative. Past Medical History Past Medical History: Asthma Additional Past Medical History / Comment(s): migraines, History of Any Multi-Drug Resistant Organisms: None Reported Past Surgical History: No Surgical Hx Reported Additional Past Surgical History / Comment(s): oral Past Anesthesia/Blood Transfusion Reactions: No Reported Reaction Past Psychological History: Anxiety, Depression Smoking Status: Never smoker Past Alcohol Use History: None Reported Past Drug Use History: None Reported - Past Family History Father History Unknown: Yes General Exam Limitations: no limitations General appearance: alert, in no apparent distress, other (This is a well-de veloped, well-nourished adult female in no acute distress.) Respiratory exam: Present: normal lung sounds bilaterally. Absent: respiratory distress, wheezes, rales, rhonchi, stridor Cardiovascular Exam: Present: regular rate, normal rhythm, normal heart sounds. Absent: systolic murmur, diastolic murmur, rubs, gallop, clicks Extremities exam: Present: normal inspection, full ROM, normal capillary refill, other (Skin to the right knee and ankle is intact. Skin pink, warm, dry. No soft tissue swelling. Pedal and posttibial pulses 2+. No laxity with valgus or varus maneuvers. Negative drawer test.). Absent: tenderness, pedal edema, joint swelling, calf tenderness Neurological exam: Present: alert, oriented X3, CN II-XII intact Psychiatric exam: Present: normal affect, normal mood Skin exam: Present: warm, dry, intact, normal color. Absent: rash Course Vital Signs 06/27/21 21:08 Temperature 98.0 F Pulse Rate 90 Respiratory 20 Rate Blood Pressure 116/77 O2 Sat by Pulse 99 Oximetry Medical Decision Making - Medical Decision Making 21-year-old female patient percents for evaluation of right knee and ankle injury. Physical examination is relatively unremarkable. She doesn't increased pain with range of motion of both joints. X-rays were negative. Did discuss sprain as a cause for her symptoms. She states an Sergio wrap on the knee and the ankle. She does have crutches at home. She is instructed to rest, ice, elevate for the next week. If symptoms are not improved she is instructed to follow-up with orthopedics for further evaluation. Return parameters were discussed in detail. She verbalizes understanding and agrees with this plan. My attending is Dr. Colmenares. - Radiology Data Radiology results: report reviewed, image reviewed 3 views of the right knee was obtained. Report was reviewed in its entirety. Impression by Dr. Bean shows no acute osseous pathology. 3 views of the right ankle are obtained. Report was reviewed in its entirety. Impression by Dr. Bean shows no evidence of acute fracture. Disposition Clinical Impression: Right knee sprain, Right ankle sprain Disposition: HOME SELF-CARE Condition: Good Instructions (If sedation given, give patient instructions): Ankle Sprain (ED), Knee Sprain (ED) Additional Instructions: Rest, ice, elevate the knee and ankle. Follow-up with orthopedics for further evaluation as soon as possible. Return to the emergency department immediately for any new, worsening, or concerning symptoms. Prescriptions: Ibuprofen [Motrin] 600 mg PO Q8HR PRN #30 tab PRN Reason: Pain Is patient prescribed a controlled substance at d/c from ED?: No Referrals: Nonstaff,Physician [Primary Care Provider] - 1-2 days Pilo Morton DO [Doctor of Osteopathic Medicine] - 1-2 days Time of Disposition: 22:55
== END 2021-06-27 23:19 | disposition home or self-care (01) ==
LOC: EC 20:05
DX: S93.401A Sprain of unspecified ligament of right ankle, initial encounter (principal); S83.91XA Sprain of unspecified site of right knee, initial encounter; J45.909 Unspecified asthma, uncomplicated; F32.A Depression, unspecified; F41.9 Anxiety disorder, unspecified; Z79.52 Long term (current) use of systemic steroids; Z79.899 Other long term (current) drug therapy; X50.1XXA Overexertion from prolonged static or awkward postures, initial encounter; Y93.41 Activity, dancing
CPT/HCPCS: 99283

== ENCOUNTER 2021-10-07 19:02 | Emergency (ER) | payer OTHER ==
[2021-10-07 20:33] VITALS: BP 110/71; PULSE 86; RESP 18; TEMP 98.1
--- NOTE | 2021-10-07 21:37 | ED ---
ENT HPI - General Chief complaint: ENT Stated complaint: Difficulty Swallowing Time Seen by Provider: 10/07/21 21:05 Source: patient Mode of arrival: ambulatory Limitations: no limitations - History of Present Illness Initial comments: This patient is 21-year-old woman who presents to be evaluated for constellation of symptoms that started on Wednesday. She states that the onset was mainly of body aches, that seemed to last about a day and then she developed sore throat, headache, drainage. She is not having much in way of cough. No chest pain or dyspnea. MD complaint: sore throat -: days(s) Location: throat Severity: moderate Quality: aching Consistency: constant Improves with: none Worsens with: none - Related Data Home Medications Medication Instructions Recorded Confirmed Bkt-Xtuo-Cojrr Acid 1 cap PO HS 05/29/20 11/29/20 [-U Capsule (formulary)] Ferrous Sulfate [Iron (65 MG 325 mg PO DAILY 09/24/20 11/29/20 Elemental)] Omeprazole 20 mg PO DAILY 11/13/20 11/29/20 Citalopram Hydrobromide [CeleXA] 10 mg PO DAILY 11/29/20 11/29/20 Previous Rx's Medication Instructions Recorded Benzonatate [Tessalon Perles] 200 mg PO TID PRN #30 capsule 06/21/21 predniSONE 50 mg PO DAILY #5 tab 06/21/21 Ibuprofen [Motrin] 600 mg PO Q8HR PRN #30 tab 06/27/21 Butalb/APAP/Caff 50-325-40Mg 1 tab PO Q4H PRN #10 tablet 10/07/21 [Fioricet 50-325-40] Allergies Allergy/AdvReac Type Severity Reaction Status Date / Time azithromycin [From Zithromax] Allergy Swelling Verified 10/07/21 20:33 Cephalosporins Allergy Rash/Hives Verified 10/07/21 20:33 methylphenidate AdvReac Rapid Verified 10/07/21 20:33 [From Concerta] Heart Rate Review of Systems ROS Statement: Those systems with pertinent positive or pertinent negative responses have been documented in the HPI. ROS Other: All systems not noted in ROS Statement are negative. Constitutional: Reports: chills. Denies: fever ENT: Reports: throat pain Respiratory: Denies: cough, dyspnea Cardiovascular: Denies: chest pain, palpitations, syncope Gastrointestinal: Denies: abdominal pain, nausea, vomiting, diarrhea Genitourinary: Denies: dysuria, hematuria Musculoskeletal: Denies: back pain Skin: Denies: rash Neurological: Denies: headache, weakness Past Medical History Past Medical History: Asthma Additional Past Medical History / Comment(s): migraines, History of Any Multi-Drug Resistant Organisms: None Reported Past Surgical History: No Surgical Hx Reported Additional Past Surgical History / Comment(s): oral Past Anesthesia/Blood Transfusion Reactions: No Reported Reaction Past Psychological History: Anxiety, Depression Smoking Status: Never smoker Past Alcohol Use History: None Reported Past Drug Use History: None Reported - Past Family History Father History Unknown: Yes General Exam Limitations: no limitations General appearance: alert, in no apparent distress Head exam: Present: atraumatic, normocephalic Eye exam: Present: normal appearance. Absent: scleral icterus, conjunctival injection ENT exam: Present: mucous membranes moist, other (There is some injection of the pharynx. No exudate. Uvula is midline with no edema.) Neck exam: Present: normal inspection, full ROM. Absent: tenderness, meningismus, lymphadenopathy Respiratory exam: Present: normal lung sounds bilaterally. Absent: respiratory distress, wheezes, rales, rhonchi, stridor Cardiovascular Exam: Present: regular rate, normal rhythm, normal heart sounds. Absent: systolic murmur, diastolic murmur, rubs, gallop GI/Abdominal exam: Present: soft. Absent: distended, tenderness, guarding, rebound, rigid, mass Extremities exam: Present: normal inspection, normal capillary refill Back exam: Present: normal inspection Neurological exam: Present: alert Skin exam: Present: warm, dry, intact, normal color. Absent: rash Course Vital Signs 10/07/21 20:30 Temperature 98.1 F Pulse Rate 86 Respiratory 18 Rate Blood Pressure 110/71 O2 Sat by Pulse 100 Oximetry Medical Decision Making - Lab Data Lab Results 10/07/21 10/07/21 Range/Units 20:35 21:47 Influenza Type A (PCR) Not Detected (Not Detectd) Influenza Type B (PCR) Not Detected (Not Detectd) RSV (PCR) Not Detected (Not Detectd) SARS-CoV-2 (PCR) Not Detected (Not Detectd) Group A Strep Rapid Negative (Negative) Disposition Clinical Impression: Pharyngitis, Viral syndrome Disposition: HOME SELF-CARE Condition: Good Instructions (If sedation given, give patient instructions): Pharyngitis (ED) Prescriptions: Butalb/APAP/Caff 50-325-40Mg [Fioricet 50-325-40] 1 tab PO Q4H PRN #10 tablet PRN Reason: Headache Is patient prescribed a controlled substance at d/c from ED?: No Referrals: Ricardo Mercado DO [Primary Care Provider] - 1-2 days
[2021-10-07] MEDS ORDERED: ACETAMINOPHEN TAB 325 MG TAB PO STA (21:41)
[2021-10-07] MEDS ORDERED: IBUPROFEN 400 MG TAB PO STA (21:41)
[2021-10-07] MEDS ORDERED: LIDOCAINE VISCOUS 2% 15 ML CUP MUCOUS MEM STA (22:52)
== END 2021-10-07 23:36 | disposition home or self-care (01) ==
LOC: EC 19:02
DX: B34.9 Viral infection, unspecified (principal); J45.909 Unspecified asthma, uncomplicated; Z88.1 Allergy status to other antibiotic agents; Z88.9 Allergy status to unspecified drugs, medicaments and biological substances
CPT/HCPCS: 87081; 87430; 87636

== ENCOUNTER 2021-11-09 13:38 | Emergency (ER) | payer OTHER ==
[2021-11-09 13:51] VITALS: RESP 18; TEMP 97.6
--- NOTE | 2021-11-09 14:17 | ED ---
Upper Extremity HPI - General Chief Complaint: Extremity Injury, Upper Stated Complaint: finger injury Time Seen by Provider: 11/09/21 14:00 Source: patient, RN notes reviewed Mode of arrival: ambulatory Limitations: no limitations - History of Present Illness Initial Comments: 21-year-old female presents emergency Department chief complaint of left hand third digit pain, bruising. She states his happened Wednesday night she states she is intoxicated, unsure what happened. Patient complains of pain, bruising. Patient is right-hand dominant offers no other complaints. - Related Data Home Medications Medication Instructions Recorded Confirmed Gzh-Xidz-Rgkef Acid 1 cap PO HS 05/29/20 11/29/20 [-U Capsule (formulary)] Ferrous Sulfate [Iron (65 MG 325 mg PO DAILY 09/24/20 11/29/20 Elemental)] Omeprazole 20 mg PO DAILY 11/13/20 11/29/20 Citalopram Hydrobromide [CeleXA] 10 mg PO DAILY 11/29/20 11/29/20 Previous Rx's Medication Instructions Recorded Benzonatate [Tessalon Perles] 200 mg PO TID PRN #30 capsule 06/21/21 predniSONE 50 mg PO DAILY #5 tab 06/21/21 Ibuprofen [Motrin] 600 mg PO Q8HR PRN #30 tab 06/27/21 Butalb/APAP/Caff 50-325-40Mg 1 tab PO Q4H PRN #10 tablet 10/07/21 [Fioricet 50-325-40] Allergies Allergy/AdvReac Type Severity Reaction Status Date / Time azithromycin [From Zithromax] Allergy Swelling Verified 11/09/21 13:51 Cephalosporins Allergy Rash/Hives Verified 11/09/21 13:51 methylphenidate AdvReac Rapid Verified 11/09/21 13:51 [From Concerta] Heart Rate Review of Systems ROS Statement: Those systems with pertinent positive or pertinent negative responses have been documented in the HPI. ROS Other: All systems not noted in ROS Statement are negative. Past Medical History Past Medical History: Asthma Additional Past Medical History / Comment(s): migraines, History of Any Multi-Drug Resistant Organisms: None Reported Past Surgical History: No Surgical Hx Reported Additional Past Surgical History / Comment(s): oral Past Anesthesia/Blood Transfusion Reactions: No Reported Reaction Past Psychological History: Anxiety, Depression Smoking Status: Never smoker Past Alcohol Use History: None Reported Past Drug Use History: None Reported - Past Family History Father History Unknown: Yes General Exam Limitations: no limitations General appearance: alert, in no apparent distress Head exam: Present: atraumatic, normocephalic, normal inspection Respiratory exam: Present: normal lung sounds bilaterally. Absent: respiratory distress, wheezes, rales, rhonchi, stridor Cardiovascular Exam: Present: regular rate, normal rhythm, normal heart sounds. Absent: systolic murmur, diastolic murmur, rubs, gallop, clicks Extremities exam: Present: other (Right hand third digit there is diffuse ecchymosis, tenderness primarily over the middle phalanx region, neurovascular intact no wrist tenderness no proximal hand tenderness) Skin exam: Present: warm, dry, intact, normal color. Absent: rash Course Vital Signs 11/09/21 13:47 Temperature 97.6 F Pulse Rate 91 Respiratory 18 Rate Blood Pressure 114/74 O2 Sat by Pulse 99 Oximetry Medical Decision Making - Medical Decision Making Venous swelling was applied x-ray shows evidence of middle phalanx fracture left hand third digit Disposition Clinical Impression: Nondisplaced fracture of middle phalanx of finger of left hand Disposition: HOME SELF-CARE Condition: Stable Instructions (If sedation given, give patient instructions): Finger Fracture (ED) Additional Instructions: Please return to the Emergency Department if symptoms worsen or any other concerns. Is patient prescribed a controlled substance at d/c from ED?: No Referrals: Ricardo Mercado DO [Primary Care Provider] - 1-2 days Time of Disposition: 14:16
--- NOTE | 2021-11-09 14:27 | XR ---
EXAMINATION TYPE: XR hand complete LT DATE OF EXAM: 11/09/2021 COMPARISON: NONE HISTORY: Pain and bruising TECHNIQUE: 3 views FINDINGS: There is an acute oblique nondisplaced fracture of the middle phalanx of the middle finger left hand extending to the PIP joint. No dislocation. IMPRESSION: Acute fracture of the middle finger as above. Mild soft tissue swelling.
[2021-11-09] MEDS ORDERED: ACET/COD 300 MG/30 MG STARTER PACK 6 TAB BTL PO STA (14:43)
[2021-11-09 14:55] VITALS: BP 116/76; PULSE 88
== END 2021-11-09 14:50 | disposition home or self-care (01) ==
LOC: EC 13:38
DX: S62.653A Nondisplaced fracture of middle phalanx of left middle finger, initial encounter for closed fracture (principal); J45.909 Unspecified asthma, uncomplicated; F32.A Depression, unspecified; F41.9 Anxiety disorder, unspecified; Z79.899 Other long term (current) drug therapy; X58.XXXA Exposure to other specified factors, initial encounter
CPT/HCPCS: 99283

== ENCOUNTER 2022-04-27 19:14 | Emergency (ER) | payer OTHER ==
[2022-04-27 19:30] VITALS: TEMP 97.8
[2022-04-27] MEDS ORDERED: SODIUM CHLORIDE 0.9% 1,000 ML IV STA (22:52)
[2022-04-27 23:05] LABS: Basophils % (A) 1 %; Eosinophils # (A) 0.1 k/uL (0-0.7); Eosinophils % (A) 2 %; HCT 40.5 % (34.0-46.0); HGB 13.6 gm/dL (11.4-16.0); Lymphocytes # (A) 1.6 k/uL (1.0-4.8); Lymphocytes % (A) 26 %; MCH 31.6 pg (25.0-35.0); MCHC 33.6 g/dL (31.0-37.0); MCV 93.9 fL (80.0-100.0); Mean Platelet Volume 9.5; Monocytes # (A) 0.2 k/uL (0-1.0); Monocytes % (A) 3 %; Neutrophils # (A) 4.1 k/uL (1.3-7.7); Neutrophils % (A) 67 %; Platelet Count 207 k/uL (150-450); RBC 4.31 m/uL (3.80-5.40); RDW 12.6 % (11.5-15.5); WBC 6.1 k/uL (3.8-10.6)
[2022-04-27 23:13] LABS: African American GFR (CKD) >90 (>60 ml/min/1.73 sqM); Anion Gap 8 mmol/L; Blood Urea Nitrogen 8 mg/dL (7-17); Calcium 9.6 mg/dL (8.4-10.2); Carbon Dioxide 25 mmol/L (22-30); Chloride 105 mmol/L (98-107); Glucose 87 mg/dL (74-99); Non-African American GFR(CKD) >90 (>60 ml/min/1.73 sqM); Potassium 3.5 mmol/L (3.5-5.1); Sodium 138 mmol/L (137-145)
[2022-04-27 23:17] LABS: INR 1.1 (<1.2); Partial Thromboplastin Time 27.1 sec (22.0-30.0); Prothrombin Time 11.3 sec (9.0-12.0)
[2022-04-27 23:22] LABS: Appearance,Urine Cloudy (Clear); Bacteria,Urine Rare /hpf; Bilirubin,Urine Negative (Negative); Blood,Urine Trace (Negative); Color,Urine Colorless; Glucose,Urine (UA) Negative (Negative); Ketones,Urine Negative (Negative); Leukocyte Esterase,Urine Small (Negative); Mucus,Urine Rare /hpf; Nitrite,Urine Negative (Negative); PH, Urine 6.5 (5.0-8.0); Protein,Urine Negative (Negative); RBC,Urine 2 /hpf (0-5); Specific Gravity,Urine 1.006 (1.001-1.035); Squamous Epithelial Cell,Urine 3 /hpf (0-4); Urobilinogen,Urine <2.0 mg/dL (<2.0); WBC,Urine 4 /hpf (0-5)
--- NOTE | 2022-04-28 00:08 | CT ---
EXAMINATION TYPE: CT brain wo con DATE OF EXAM: 04/27/2022 COMPARISON: None HISTORY: DIZZY SPELLS X2 WEEKS WORSENING OF LATE, LIGHT HEADED & NEAR SYNCOPE, C/O BLURRED VISION, ABNORMAL THIRST, UNEXPLAINED WEIGHT LOSS 20-30 POUNDS IN THE LAST 2-[address] DLP: 1143 mGycm Automated exposure control for dose reduction was used. Images of the brain obtained with no contrast. The ventricles and sulci appear normal. There is no mass effect or midline shift. No sign of intracra nial hemorrhage. No evidence of cerebral edema. Calvarium is intact. There is mucous retention cyst in both maxillary sinuses. There is normal aeration of the mastoid sin uses. IMPRESSION: Negative CT scan of the brain.
[2022-04-28] MEDS ORDERED: SODIUM CHLORIDE 0.9% 1,000 ML IV STA (01:21)
--- NOTE | 2022-04-28 01:23 | ED ---
General Adult HPI - General Chief complaint: Dizziness Stated complaint: syncope, vision issues Time Seen by Provider: 04/27/22 22:35 Source: patient, RN notes reviewed Mode of arrival: wheelchair Limitations: no limitations - History of Present Illness Initial comments: 22-year-old female presents to the emergency Department with complaints of persistent dizziness that has been ongoing for the past few weeks. States she has an appointment scheduled for Wednesday with her PCP, but became concerned this evening when she almost passed out. States dizziness is worsened with movement and accompanied by blurry vision. States she has been tolerating oral intake without difficulty. 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 States she has been experiencing increased thirst and has been drinking plenty of fluids, including electrolyte drinks. Denies fever, chills, headache, shortness of breath, difficulty breathing, chest pain, palpitations, nausea, vomiting, diarrhea, dysuria. - Related Data Home Medications Medication Instructions Recorded Confirmed Taq-Ltta-Ddqvz Acid 1 cap PO HS 05/29/20 11/29/20 [-U Capsule (formulary)] Ferrous Sulfate [Iron (65 MG 325 mg PO DAILY 09/24/20 11/29/20 Elemental)] Omeprazole 20 mg PO DAILY 11/13/20 11/29/20 Citalopram Hydrobromide [CeleXA] 10 mg PO DAILY 11/29/20 11/29/20 Previous Rx's Medication Instructions Recorded Benzonatate [Tessalon Perles] 200 mg PO TID PRN #30 capsule 06/21/21 predniSONE 50 mg PO DAILY #5 tab 06/21/21 Ibuprofen [Motrin] 600 mg PO Q8HR PRN #30 tab 06/27/21 Butalb/APAP/Caff 50-325-40Mg 1 tab PO Q4H PRN #10 tablet 10/07/21 [Fioricet 50-325-40] Allergies Allergy/AdvReac Type Severity Reaction Status Date / Time azithromycin [From Zithromax] Allergy Swelling Verified 04/27/22 19:30 Cephalosporins Allergy Rash/Hives Verified 04/27/22 19:30 methylphenidate AdvReac Rapid Verified 04/27/22 19:30 [From Concerta] Heart Rate Review of Systems ROS Statement: Those systems with pertinent positive or pertinent negative responses have been documented in the HPI. ROS Other: All systems not noted in ROS Statement are negative. Past Medical History Past Medical History: Asthma Additional Past Medical History / Comment(s): migraines, History of Any Multi-Drug Resistant Organisms: None Reported Past Surgical History: No Surgical Hx Reported Additional Past Surgical History / Comment(s): oral Past Anesthesia/Blood Transfusion Reactions: No Reported Reaction Past Psychological History: Anxiety, Depression Smoking Status: Never smoker Past Alcohol Use History: None Reported Past Drug Use History: None Reported - Past Family History Father History Unknown: Yes General Exam Limitations: no limitations General appearance: alert, in no apparent distress Eye exam: Present: normal appearance, PERRL, EOMI. Absent: scleral icterus, conjunctival injection, periorbital swelling ENT exam: Present: normal exam, mucous membranes moist, TM's normal bilaterally Respiratory exam: Present: normal lung sounds bilaterally. Absent: respiratory distress, wheezes, rales, rhonchi, stridor Cardiovascular Exam: Present: normal rhythm, bradycardia, normal heart sounds GI/Abdominal exam: Present: soft, normal bowel sounds. Absent: distended, tenderness, guarding, rebound, rigid Neurological exam: Present: alert, oriented X3 Expanded Patient oriented to: Present: person, place, time Speech: Present: fluid speech Cranial nerves: EOM's Intact: Normal, Nystagmus: Normal Cerebellar function: Romberg: Normal (dizziness upon standing initially, though did improve ) Motor strength exam: RUE: 5, LUE: 5, RLE: 5, LLE: 5 Eye Response: (4) open spontaneously Motor Response: (6) obeys commands Verbal Response: (5) oriented [place] Total: 15 Psychiatric exam: Present: normal affect, normal mood Skin exam: Present: warm, dry, intact, normal color. Absent: rash Course Vital Signs 04/27/22 04/27/22 04/28/22 19:28 23:05 01:23 Temperature 97.8 F 97.8 F Pulse Rate 76 49 L Pulse Rate [ Right Sitting Lathe Machine Operator ] Pulse Rate [ Right Standing Lathe Machine Operator ] Pulse Rate [ 49 L Right Supine Lathe Machine Operator ] Respiratory 16 16 15 Rate Blood Pressure 126/66 120/74 Blood Pressure [Right Arm Standing] Blood Pressure 112/74 [Right Arm Supine] O2 Sat by Pulse 98 99 100 Oximetry 04/28/22 04/28/22 01:25 01:27 Temperature Pulse Rate Pulse Rate [ 61 Right Sitting Lathe Machine Operator ] Pulse Rate [ 79 Right Standing Lathe Machine Operator ] Pulse Rate [ Right Supine Lathe Machine Operator ] Respiratory 15 15 Rate Blood Pressure Blood Pressure 109/77 [Right Arm Standing] Blood Pressure 107/86 [Right Arm Supine] O2 Sat by Pulse 100 100 Oximetry - Reevaluation(s) Reevaluation #1: 04/28/22 01:22 Upon reassessment, patient is dizzy with position change. Orthostatic heart rate positive; patient symptomatic. Additional 1L IV fluids to be given. 04/28/22 02:00 Results discussed with patient, including bradycardia. She is encouraged to check heart rate and blood pressure at home using a home monitoring equipment and to follow-up with her PCP on Wednesday. Patient verbalizes understanding and agrees with this plan. Medical Decision Making - Medical Decision Making 22-year-old female with no significant past medical history presents to the emergency department for evaluation of dizziness. Upon exam, patient is well- appearing and in no acute distress. She does complain of dizziness while resting in a reclining position, however it does worsen when standing. Patient is neurologically intact with no focal deficits. Patient is found to be bradycardic with a heart rate in the 50s. She noticed she had a history of arrhythmia but is uncertain of what type. Denies any chest pain or palpitations. Laboratory studies were obtained and are unremarkable. Patient was given 2 L of IV fluids with improvement. CT of the brain was negative. Orthostatic heart rate measurements are positive. Patient is encouraged to carefully monitor heart rate and blood pressure and log these findings to discuss with her PCP when she follows up. Instructed to make position changes slowly and increase fluid intake. Return parameters were discussed in detail. Patient verbalizes understanding and agrees with this plan. Attending: Dedra. - Lab Data Result diagrams: 04/27/22 22:48 04/27/22 22:48 Lab Results 04/27/22 04/27/22 04/27/22 Range/Units 22:48 22:48 22:48 WBC 6.1 (3.8-10.6) k/uL RBC 4.31 (3.80-5.40) m/uL Hgb 13.6 (11.4-16.0) gm/dL Hct 40.5 (34.0-46.0) % MCV 93.9 (80.0-100.0) fL MCH 31.6 (25.0-35.0) pg MCHC 33.6 (31.0-37.0) g/dL RDW 12.6 (11.5-15.5) % Plt Count 207 (150-450) k/uL MPV 9.5 Neutrophils % 67 % Lymphocytes % 26 % Monocytes % 3 % Eosinophils % 2 % Basophils % 1 % Neutrophils # 4.1 (1.3-7.7) k/uL Lymphocytes # 1.6 (1.0-4.8) k/uL Monocytes # 0.2 (0-1.0) k/uL Eosinophils # 0.1 (0-0.7) k/uL Basophils # 0.0 (0-0.2) k/uL PT 11.3 (9.0-12.0) sec INR 1.1 (<1.2) APTT 27.1 (22.0-30.0) sec Sodium 138 (137-145) mmol/L Potassium 3.5 (3.5-5.1) mmol/L Chloride 105 (98-107) mmol/L Carbon Dioxide 25 (22-30) mmol/L Anion Gap 8 mmol/L BUN 8 (7-17) mg/dL Creatinine 0.66 (0.52-1.04) mg/dL Est GFR (CKD-EPI)AfAm >90 (>60 ml/min/1.73 sqM) Est GFR (CKD-EPI)NonAf >90 (>60 ml/min/1.73 sqM) Glucose 87 (74-99) mg/dL Calcium 9.6 (8.4-10.2) mg/dL Urine Color Urine Appearance (Clear) Urine pH (5.0-8.0) Ur Specific Ehrhardt (1.001-1.035) Urine Protein (Negative) Urine Glucose (UA) (Negative) Urine Ketones (Negative) Urine Blood (Negative) Urine Nitrite (Negative) Urine Bilirubin (Negative) Urine Urobilinogen (<2.0) mg/dL Ur Leukocyte Esterase (Negative) Urine RBC (0-5) /hpf Urine WBC (0-5) /hpf Ur Squamous Epith Cells (0-4) /hpf Urine Bacteria (None) /hpf Urine Mucus (None) /hpf Urine HCG, Qual (Not Detectd) 04/27/22 04/27/22 Range/Units 22:53 22:53 WBC (3.8-10.6) k/uL RBC (3.80-5.40) m/uL Hgb (11.4-16.0) gm/dL Hct (34.0-46.0) % MCV (80.0-100.0) fL MCH (25.0-35.0) pg MCHC (31.0-37.0) g/dL RDW (11.5-15.5) % Plt Count (150-450) k/uL MPV Neutrophils % % Lymphocytes % % Monocytes % % Eosinophils % % Basophils % % Neutrophils # (1.3-7.7) k/uL Lymphocytes # (1.0-4.8) k/uL Monocytes # (0-1.0) k/uL Eosinophils # (0-0.7) k/uL Basophils # (0-0.2) k/uL PT (9.0-12.0) sec INR (<1.2) APTT (22.0-30.0) sec Sodium (137-145) mmol/L Potassium (3.5-5.1) mmol/L Chloride (98-107) mmol/L Carbon Dioxide (22-30) mmol/L Anion Gap mmol/L BUN (7-17) mg/dL Creatinine (0.52-1.04) mg/dL Est GFR (CKD-EPI)AfAm (>60 ml/min/1.73 sqM) Est GFR (CKD-EPI)NonAf (>60 ml/min/1.73 sqM) Glucose (74-99) mg/dL Calcium (8.4-10.2) mg/dL Urine Color Colorless Urine Appearance Cloudy H (Clear) Urine pH 6.5 (5.0-8.0) Ur Specific Ehrhardt 1.006 (1.001-1.035) Urine Protein Negative (Negative) Urine Glucose (UA) Negative (Negative) Urine Ketones Negative (Negative) Urine Blood Trace H (Negative) Urine Nitrite Negative (Negative) Urine Bilirubin Negative (Negative) Urine Urobilinogen <2.0 (<2.0) mg/dL Ur Leukocyte Esterase Small H (Negative) Urine RBC 2 (0-5) /hpf Urine WBC 4 (0-5) /hpf Ur Squamous Epith Cells 3 (0-4) /hpf Urine Bacteria Rare H (None) /hpf Urine Mucus Rare H (None) /hpf Urine HCG, Qual Not Detected (Not Detectd) - EKG Data EKG shows normal: sinus rhythm Rate: bradycardia EKG Comments: EKG obtained at 2241 shows sinus bradycardia with sinus arrhythmia and nonspecific T-wave abnormality. Ventricular rate 49, NM interval 143, QRS du ration 82, QT/QTc 435/407. Interpretation borderline ECG. - Radiology Data Radiology results: report reviewed, image reviewed CT of the brain was obtained. Report was reviewed in its entirety. Impression per Dr. Baptiste is negative CT scans of the brain. Disposition Clinical Impression: Dizziness, Bradycardia Disposition: HOME SELF-CARE Condition: Stable Instructions (If sedation given, give patient instructions): Dizziness (ED) Additional Instructions: Increase fluid intake. Make position changes slowly. Periodically check heart rate and blood pressure; record these numbers. Follow-up with your PCP as scheduled on Wednesday. Return to the emergency department with any new, worsening, or concerning symp toms. Note: Heart rate at rest 49-60. Is patient prescribed a controlled substance at d/c from ED?: No Referrals: Ricardo Mercado DO [Primary Care Provider] - 1-2 days Time of Disposition: 02:03
[2022-04-28 01:24] VITALS: RESP 15
[2022-04-28 01:28] VITALS: BP 109/77; PULSE 79
== END 2022-04-28 02:47 | disposition home or self-care (01) ==
LOC: EC 19:14
DX: R42 Dizziness and giddiness (principal); R00.1 Bradycardia, unspecified; J45.909 Unspecified asthma, uncomplicated; F32.A Depression, unspecified; G40.909 Epilepsy, unspecified, not intractable, without status epilepticus; Z88.1 Allergy status to other antibiotic agents; Z79.899 Other long term (current) drug therapy; Z88.8 Allergy status to other drugs, medicaments and biological substances
CPT/HCPCS: 36415; 70450; 80048; 81001; 81025; 85025; 85610; 85730; 93005; 96360; 96361; 99284

== ENCOUNTER 2022-10-05 06:43 | Emergency (ER) | payer OTHER ==
[2022-10-05 06:52] VITALS: BP 126/83; PULSE 63; RESP 22; TEMP 98.2
[2022-10-05] MEDS ORDERED: SODIUM CHLORIDE 0.9% 1,000 ML IV STA (06:52)
[2022-10-05] MEDS ORDERED: ONDANSETRON ODT 4 MG TAB PO STA (06:55)
== END 2022-10-05 07:24 | disposition left against medical advice (07) ==
LOC: EC 06:43
DX: R11.10 Vomiting, unspecified (principal); Z53.21 Procedure and treatment not carried out due to patient leaving prior to being seen by health care provider
CPT/HCPCS: 99499